=== PATIENT | female | born 1975 | race Caucasian/White ===

== ENCOUNTER 2021-03-28 14:44 | Outpatient (CLI) | payer MEDICARE, MEDICAID, SELFPAY ==
--- NOTE | 2021-03-28 15:15 | MR_ITS ---
WS: [id number] MRI LUMBAR SPINE NONCONTRAST TECHNIQUE: Sagittal T1, T2 and STIR imaging. Axial T1 and T2 imaging. CLINICAL INFORMATION: LBP COMPARISON: None. FINDINGS: Normal lumbar alignment. No acute compression. No high-grade central canal stenosis. Tiny shallow pro trusions L4-L5 and L5-S1. L1-L2: Mild facet arthropathy. Spinal canal and foramen are patent. L2-L3: No significant disc bulging. Mild facet arthropathy. Spinal canal and foramen are patent. L3-L4: Mild annular bulging. Mild facet arthropathy. Spinal canal and foramen are patent. L4-L5: Shallow central and right pericentral protrusion with slight narrowing of the right subarticul ar recess. Slight effacement of ventral thecal sac. Mild facet arthropathy. Foramen are patent. L5-S1: Shallow left pericentral protrusion slightly impinges the traversing left S1 nerve root. Sligh t effacement of the ventral thecal sac. Mild facet arthropathy. Spinal canal and foramen are patent. Right renal cysts partially visualized. Small central protrusions in the mid thoracic spine seen on the nurse liaison imaging at T5-T6, T6-T7, and T7 -T8 with slight contact of the thoracic cord and mild central canal stenosis. Mild chronic appearing anterior wedging at T5-T7. Visualized pelvic bony structures: Normal. Paravertebral soft tissues: Dependent subcutaneous edema in the dorsal lumbar soft tissues. MR/MR lumbar spine wo con* [id number] IMPRESSION: 1. Normal lumbar alignment. No acute compression. No high-grade central canal stenosis. 2. Shallow left pericentral protrusion L5-S1 impinges the traversing left S1 n erve root in the subarticular recess. Recommend correlation left S1 nerve root symptoms. 3. Shallow right pericentral protrusion L4-5 with narrowing of the right subar ticular recess and encroachment traversing right L5 nerve root. 4. Mild facet arthropathy throughout the lumbar spine. 5. Shallow central disc protrusions in the thoracic spine on the nurse liaison imaging at T5-T7 described above with mild central canal stenosis. This can be further evaluated with thoracic spine MRI.
--- NOTE | 2021-03-28 15:15 | XR_ITS ---
WS: [id number] LUMBAR SPINE FLEXION AND EXTENSION TECHNIQUE: 3 views of the lumbar spine: Lateral neutral, flexion, and extension views. CLINICAL INFORMATION: LBP COMPARISON: None. FINDINGS: Normal lumbar alignment on the neutral view. No instability on the flexion and extension views. Mild chronic anterior wedging lower thoracic spine . Mild disc space narrowing L5-S1. XR/XR lumbar spine f/e only [id number] IMPRESSION: No instability on flexion-extension.
== END 2021-03-28 14:45 | disposition home or self-care (01) ==
PROVIDERS: Visit Provider Anesthesiology Pain Medicine
DX: M51.27 Other intervertebral disc displacement, lumbosacral region (principal); M51.26 Other intervertebral disc displacement, lumbar region; M47.816 Spondylosis without myelopathy or radiculopathy, lumbar region; M51.24 Other intervertebral disc displacement, thoracic region
CPT/HCPCS: 72120; 72148

== ENCOUNTER 2021-04-14 11:03 | Outpatient (CLI) | payer MEDICARE, MEDICAID, SELFPAY ==
--- NOTE | 2021-04-14 11:10 | CT_ITS ---
WS: [id number] CT scan of the abdomen and pelvis with oral and IV contrast. Additional two-dimensional coronal and s agittal reconstruction was performed. 04/14/2021 Clinical Data: ABDOMINAL PAIN AND NAUSEA Comparison: CT abdomen and pelvis, 11/15/2012 DLP: 1251.[address] scans at [facility] use at least one of these dose optimization techniques: automated e xposure control; mA and/or kV adjustment per patient size (includes targeted exams where dose is matc hed to clinical indication); or iterative reconstruction. Findings: The lower lungs show no nodules, masses or effusions. There is enlarged with surface irregularity which can be seen with cirrhosis. No liver nodules or mas ses are seen. The gallbladder is absent with clips in the gallbladder fossa. Spleen is enlarged but t here are no splenic cysts or masses. There is a large amount of ascites throughout the abdomen and pe lvis. The pancreas is normal. The adrenal glands are not remarkable. The kidneys show equal bilateral contrast excretion with no cyst or masses. No hydronephrosis or christopher l calculi are seen. The abdominal aorta is normal in size. No appendicitis or diverticulitis is seen. Oral contrast is in the stomach and small bowel and there is no bowel dilatation. No abscess, adenopathy, mass, obstruction or free air is seen. The bladder is unremarkable. The uterus is normal. No inguinal hernia is seen. The bones of the lower thorax, lumbar spine, pelvis, and hips show only osteoarthritis of the lower t horacic vertebral bodies. CT/CT abdomen pelvis w con* [id number] Impression: 1. Hepatosplenomegaly with probable cirrhosis of the liver. 2. Large amount of pelvic and abdominal ascites. 3. Cholecystectomy.
[2021-04-14] MEDS: iohexol 300 mg/mL 50 mL Btl PO (11:12)
[2021-04-14] MEDS: iohexol 350 mg/mL 100 mL Btl IV (13:03)
== END 2021-04-14 11:04 | disposition home or self-care (01) ==
PROVIDERS: Visit Provider Family Medicine
DX: R10.9 Unspecified abdominal pain (principal); R11.0 Nausea; R16.2 Hepatomegaly with splenomegaly, not elsewhere classified; R18.8 Other ascites; Z90.49 Acquired absence of other specified parts of digestive tract
CPT/HCPCS: 74177; Q9967

== ENCOUNTER 2021-11-20 06:11 | Outpatient (CLI) | payer MEDICARE, MEDICAID, SELFPAY ==
--- NOTE | 2021-11-20 | US_ITS ---
WS: [id number] RIGHT UPPER QUADRANT ULTRASOUND HISTORY: ABD PAIN COMPARISON: None available. Liver: 14.3 cm in length. Visually the liver appears large although does not measure enlarged. Surfac e of the liver is irregular from cirrhosis. Coarse echotexture. No mass or bile duct dilatation. Portal Vein: Normal hepatopetal flow with monophasic waveform. Gallbladder: Status post cholecystectomy. CBD: 0.4 cm Pancreas: Not visualized due to body habitus and bowel gas. Right kidney: 11.9 cm in length. Normal size and echogenicity. No hydronephrosis or mass. Aorta and IVC: Unremarkable abdominal aorta and IVC. There is a small to moderate amount of ascites throughout the abdomen in all 4 quadrants. US/US abdomen limited [id number] IMPRESSION: 1. Small to moderate amount of ascites throughout all 4 quadrants. 2. Cirrhosis with no mass identified. 3. Normal portal vein waveform. 4. Prior cholecystectomy.
== END 2021-11-20 06:12 | disposition home or self-care (01) ==
LOC: RAD 06:12
PROVIDERS: Visit Provider Nurse Practitioner
DX: R10.9 Unspecified abdominal pain (principal); K59.00 Constipation, unspecified; K74.60 Unspecified cirrhosis of liver; R18.0 Malignant ascites
CPT/HCPCS: 76705

== ENCOUNTER 2022-02-04 13:42 | Outpatient (CLI) | payer MEDICARE, MEDICAID, SELFPAY ==
--- NOTE | 2022-02-04 13:46 | CT_ITS ---
WS: [id number] CT ABDOMEN AND PELVIS WITH CONTRAST HISTORY: Abdominal pain and bloating. RIGHT upper quadrant pain into back. TECHNIQUE: Imaging performed of the abdomen and pelvis with IV contrast. Single phase imaging of the abdomen. Coronal and sagittal reformats are submitted. All CT scans at [facility] use at [address] one of these dose optimization techniques: automated exposure control; mA and/or kV adjustment per patient size (includes targeted exams where dose is matched to clinical indication); or iterative re construction. IV CONTRAST: Omnipaque 350; 95 mL IV. Oral contrast: Yes. DLP: 1425.03 mGy.cm COMPARISON: 04/14/2021 and 11/15/2012 Lower thorax: Very minimal groundglass hazy opacifications at the lung bases normal size heart. The R IGHT atrium is being compressed by slightly elevated RIGHT diaphragm. The RIGHT diaphragmatic elevati on secondary to a large amount of ascites within the abdomen extending superiorly causing some mild m ass effect upon the RIGHT atrium. No hiatal hernia. Liver/biliary system: Cirrhotic liver. Margins are nodular and irregular. No mass or bile duct dilata tion. Portal vein is normal. Gallbladder: Status post cholecystectomy. Pancreas: Normal size pancreas and pancreatic duct. No adjacent inflammation. Spleen: Moderately enlarged spleen measuring 16.3 cm in length. 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 Adrenal glands: Normal. Right kidney: Too small to characterize hypodense nodule superior pole. No obstruction. Left kidney: Normal. Aorta: Normal size aorta. Hepatic artery and splenic artery arise separately from the aorta. Normal S MA. Lymphadenopathy: There are small lymph nodes near the celiac axis of the largest measuring 12 mm. Free fluid: Large amount of intraperitoneal free fluid. The ascites has increased since the prior isabel dy. GI tract: Normal stomach and small bowel. Mild diffuse constipation. Abdominal wall: Umbilical hernia contains fluid and fat. There is marked diffuse soft tissue anasarca throughout the abdominal wall. Pelvis: Large amount of free fluid. The uterus is present and normal. Normal size ovaries. Bones: Increase in lumbar lordosis. CT/CT abdomen pelvis w con* [id number] IMPRESSION: 1. Large amount of intraperitoneal ascites. Amount is increased since 1. 2. Increased ascites in the peritoneal cavity is causing elevation of the RIGH T hemidiaphragm and mild contact on the RIGHT heart causing deformity and proba ble poor expansion of the RIGHT atrium. Consider large volume paracentesis. 3. Cirrhosis and portal venous hypertension. 4. Prior cholecystectomy. 5. Soft tissue anasarca.
[2022-02-04] MEDS: barium sulfate 450 mL Oral Susp PO (16:08)
[2022-02-04] MEDS: iohexol 350 mg/mL 100 mL Btl IV (16:08)
== END 2022-02-04 13:43 | disposition home or self-care (01) ==
PROVIDERS: PCP Family Medicine; Visit Provider Nurse Practitioner
DX: R10.9 Unspecified abdominal pain (principal); R18.8 Other ascites; K74.60 Unspecified cirrhosis of liver; K76.6 Portal hypertension; Z90.49 Acquired absence of other specified parts of digestive tract
CPT/HCPCS: 74177

== ENCOUNTER 2022-09-18 07:32 | Outpatient (CLI) | payer MEDICARE, MEDICAID, SELFPAY ==
--- NOTE | 2022-09-18 08:21 | US_ITS ---
WS: [id number] RENAL ULTRASOUND HISTORY: CYST OF KIDNEY/RENAL LESION NOTED ON U/S SCAN COMPARISON: 02/04/2022 CT. TECHNIQUE: 2-D and color Doppler imaging of the kidney submitted. Right kidney: 11.6 cm x 5.1 cm x 4.6 cm. Normal size kidney. No solid mass or hydronephrosis. Cortical cyst measures 8 mm mid kidney. Similar in size and location to the nodule seen on recent CT. Left kidney: 12.2 cm x 5.3 cm x 4.9 cm. Normal echogenicity with no hydronephrosis or mass. Aorta: Not visualized. Urinary Bladder: Nondistended. Small amount of ascites. US/US renal BI* [id number] IMPRESSION: 1. 8 mm RIGHT renal cyst. Corresponds to the findings on a recent CT. 2. No hydronephrosis or solid mass. 3. Ascites.
== END 2022-09-18 07:33 | disposition home or self-care (01) ==
PROVIDERS: PCP Family Medicine; Visit Provider Family Medicine
DX: N28.1 Cyst of kidney, acquired (principal); R18.8 Other ascites
CPT/HCPCS: 76770

== ENCOUNTER 2022-12-08 09:56 | Observation (INO) | payer MEDICARE, MEDICAID, SELFPAY ==
[2022-12-08] VITALS (8 sets, daily range): BP systolic 143–163; BP diastolic 69–99; PULSE 79–106; RESP 16–18; TEMP 36.7; O2SAT 97–100; BMI 42.7
--- NOTE | 2022-12-08 10:06 | XR_ITS ---
WS: [id number] PORTABLE CHEST HISTORY: weakness COMPARISON: 08/29/2018 Lung volumes are decreased. No mass or pneumonia. No pleural effusion or pneumothorax. Cardiac size: Normal. Mediastinum/Aorta: Normal mediastinum. No osseous abnormality seen. XR/XR chest 1V portable [id number] IMPRESSION: Unremarkable portable chest.
--- NOTE | 2022-12-08 10:11 | ED_ITS ---
Documented by User: KATERINA Gonzáles 12/09/22 07:03 HPI - General Adult General: Chief complaint: Weakness Stated complaint: POST TREMORS Time Seen by Provider: 12/08/22 09:57 Source: patient and EMS Mode of arrival: EMS Limitations: no limitations History of Present Illness: Patient is a 47-year-old female presents to ED today with complaint of generalized weakness, mental slowing, and tremor/jerky movements. Patient tells me she was recently at [facility] where she had a TIPS procedure performed (12/01). States procedure was performed secondary to severe CEDILLO to prolong the life of my liver . Patient states a few days ago she went to [facility] with identical symptoms and was diagnosed with hepatic encephalopathy. She reportedly was supposed to be transferred back to [facility] however they did not have a bed so was boarded in their ED for 1 to 2 days. Mental status improved with repeat doses of lactulose and she was subsequently discharged on 12/06. Given prescriptions for lactulose and rifaximin. She states her insurance does not cover this medication (rifaximin) and it was too expensive to fill. Has been taking her lactulose. Patient on exam is alert and oriented however there does seem to be some slight cognitive slowing. PMH is significant for DVT several years ago still on Eliquis anticoagulation, asthma, fibromyalgia, edema without diagnosis of CHF, chronic back pain, diabetes, opioid-induced constipation, GERD, Graves' disease. Onset (ago): day(s) Relieving factors: none Exacerbating factors: none Associated symptoms: Reports confusion and weakness; Deny chest pain, dyspnea, headache(s), malaise, nausea, rash or vomiting Treatments prior to arrival: none Review of Systems Const: Reports: fatigue; Denies: fever(s), chills, body aches or malaise Card: Denies: chest pain Resp: Denies: dyspnea GI: Denies: abdominal pain, nausea, vomiting or diarrhea : Denies: flank pain, difficulty voiding, dysuria or urinary frequency Musc: Denies: neck pain, back pain, extremity pain or joint pain Skin/Breast: Denies: rash Neuro: Reports: weakness in extremities, difficulty walking, frequent falls, confusion and difficulty communicating thoughts; Denies: headache(s), numbness in extremities, sensory changes, dizziness, vertigo, behavioral changes, Slurred speech present, seizure-like activity, involuntary movements or restless legs PFSH ED PFSH: Medical History Chronic anticoagulation Diabetes DVT (deep venous thrombosis) Surgical History S/P TIPS (transjugular intrahepatic portosystemic shunt) Family History Denies family history of CAD (coronary artery disease) Social History Smoking and tobacco status: never smoked Alcohol intake: never Substance/Drug Use: never Physical Exam Const: COMMON NORMALS: patient oriented x3 and alert GENERAL APPEARANCE: cooperative, ill appearing (chronically ill appearing), appears older than stated age and other (deconditioned ) NUTRITIONAL APPEARANCE: obese morbidly obese ORIENTATION/CONSCIOUSNESS: Yes awake, Yes oriented to person, Yes oriented to place and Yes oriented to time HENMT: COMMON NORMALS: normocephalic and atraumatic HEAD & SCALP: normal to inspection, normocephalic and atraumatic Eye: COMMON NORMALS: no scleral icterus Resp: COMMON NORMALS: normal respiratory effort and clear to auscultation bilaterally AUSCULTATION: clear to auscultation bilaterally Cardio: COMMON NORMALS: regular rate and regular rhythm RATE: regular rate RHYTHM: regular rhythm GI: COMMON NORMALS: Normal to inspection, nondistended, normoactive bowel sounds present, Soft to palpation and non-tender PALPATION: Yes Soft to palpation : COMMON NORMALS: Yes no CVA tenderness BLADDER/KIDNEY EXAM: Yes no CVA tenderness Back/Pelvis: COMMON NORMALS: no CVA tenderness Extremity: COMMON NORMALS: normal to inspection, capillary refill normal, no clubbing, cyanosis or edema, no calf tenderness and no pedal edema GENERAL: Yes normal exam except as noted Neuro: NICCI COMA SCALE: document GCS findings Nicci coma scale eye opening: Spontaneous Nicci coma scale verbal response: Orientated Encampment coma scale motor response: Obey commands Encampment coma scale total score: 15 COMMON NORMALS: patient oriented x3, CN's II-XII intact bilaterally, moves all extremities, no focal motor deficits and no sensory deficits noted SENSORIUM/ORIENTATION: Yes alert, Yes oriented to person, Yes oriented to place and Yes oriented to time GAIT: Yes Unable to assess gait Skin: COMMON NORMALS: no rashes or lesions noted GENERAL SKIN EXAM: no rashes or lesions noted Course Reevaluation(s): Reevaluation #1: Patient's mentation seems improved currently as opposed to when she first arrived. She continues to complain of diffuse weakness. Consultations: Consultation #1: Dr. Denson/GI-agrees with decision to transfer given now this is her second ED hospitalization for hepatic encephalopathy following TIPS procedure a week ago. He stated admitting physician will be Dr. Zamudio. Consultation #2: Dr. Stafford-will consult on patient while in the ED as she is anticipated to be here 1-2 days prior to transfer to [facility] Vital Signs: Vital signs: Vital Signs Temperature 98.0 F 12/09/22 05:35 Pulse Rate 97 12/09/22 05:35 Respiratory Rate 19 H 12/09/22 05:35 Blood Pressure 163/92 12/09/22 06:00 Pulse Oximetry 96 12/09/22 05:35 Oxygen Delivery Me thod Room Air 12/09/22 00:06 MDM - General Adult Medical Decision Making Patient is a 47-year-old female here for complaints of generalized weakness, abnormal tremulous/jerky movements, and mental slowing. She was admitted to [facility] a few days ago for same symptoms. She is status post TIPS procedure performed on 12/01. She has been taking her lactulose as prescribed at home. Her ammonia today is 140. I spoke to GI at [facility] who recommended transfer back to their facility. Transfer line states they have no beds available but will call us when they do. Patient was given repeat dose of lactulose here. I did obtain liver ultrasound with Doppler which showed limited visualization of the TIPS and states patency was not well evaluated. There did appear to be at least some flow present. He was also given a dose of rifaximin. I spoke to Dr. De La Torre in regards to patient. We will have hospitalist attempt to consult on her here in the ED given her extensive comorbidities until she can be transferred back to [facility]. Lab Data 12/09/22 05:00 12/09/22 05:00 Radiology Impressions Chest X-Ray 12/08/22 10:06 IMPRESSION: Unremarkable portable chest. Liver Ultrasound 12/08/22 11:41 IMPRESSION: 1. Very limited visualization of the TIPS. Patency is not well evaluated. There does appear to be at least some flow present. 2. Normal flow in the portal vein. 3. Small amount of ascites adjacent to the liver. Ascites has decreased in amount since 09/18/2022. Laboratory Results WBC 5.5 10^3/uL (4.0-10.0) 12/08/22 11:15 RBC 4.52 10^6/uL (4.1-5.3) 12/08/22 11:15 Hgb 12.7 g/dL (11.5-15.3) 12/08/22 11:15 Hct 38.3 % (37.0-47.0) 12/08/22 11:15 MCV 84.7 fl (81-99) 12/08/22 11:15 MCH 28.1 pg (28.0-34.0) 12/08/22 11:15 MCHC 33.2 g/dL (30.0-36.0) 12/08/22 11:15 RDW 19.5 % (12.1-15.1) H 12/08/22 11:15 Plt Count 107 10^3/cmm (130-400) L 12/08/22 11:15 MPV 8.4 fL (7.4-10.4) 12/08/22 11:15 Neut % (Auto) 66.1 % 12/08/22 11:15 Lymph % (Auto) 22.5 % 12/08/22 11:15 Gage % (Auto) 9.2 % 12/08/22 11:15 Eos % (Auto) 1.6 % 12/08/22 11:15 Baso % (Auto) 0.4 % 12/08/22 11:15 Neut # (Auto) 3.65 10^3/uL (1.8-7.7) 12/08/22 11:15 Lymph # (Auto) 1.2 10^3/uL (0.8-4.8) 12/08/22 11:15 Gage # (Auto) 0.5 10^3/uL (0.2-0.9) 12/08/22 11:15 Eos # (Auto) 0.1 10^3/uL (0.0-0.8) 12/08/22 11:15 Baso # (Auto) 0.0 10^3/uL (0.0-0.1) 12/08/22 11:15 Nucleated RBC % (auto) 0 % 12/08/22 11:15 Nucleated RBCs # 0.0 /100WBC 12/08/22 11:15 PT 15.80 SECONDS (12.1-14.9) H 12/08/22 11:15 INR 1.22 (0.8-1.2) H 12/08/22 11:15 APTT 30.9 SECONDS (23.9-36.7) 12/08/22 11:15 Sodium 140 mmol/L (136-145) 12/08/22 11:15 Potassium 3.9 mmol/L (3.5-5.1) 12/08/22 11:15 Chloride 105 mmol/L (98-107) 12/08/22 11:15 Carbon Dioxide 23 mmol/L (22-29) 12/08/22 11:15 Anion Gap 15.9 (5-19) 12/08/22 11:15 BUN 9 mg/dL (6-20) 12/08/22 11:15 Creatinine 0.4 mg/dL (0.5-0.9) L 12/08/22 11:15 GFR Calculation 170.4 mL/min (90-130) H 12/08/22 11:15 Glucose 124 mg/dL (65-115) H 12/08/22 11:15 POC Glucose 109 mg/dL (70-110) 12/08/22 19:32 Calculated Osmolality 290 mOsm/kg (285-295) 12/08/22 11:15 Calcium 9.1 mg/dL (8.5-10.5) 12/08/22 11:15 Total Bilirubin 1.9 mg/dL (0.15-1.2) H 12/08/22 11:15 AST 48 U/L (0-32) H 12/08/22 11:15 ALT 65 U/L (0-33) H 12/08/22 11:15 Alkaline Phosphatase 88 U/L (35-105) 12/08/22 11:15 Ammonia 140 umol/L (11-51) H 12/08/22 11:15 Total Protein 7.2 g/dL (6.6-8.7) 12/08/22 11:15 Albumin 3.8 g/dL (3.5-5.2) 12/08/22 11:15 Globulin 3.4 g/dL (1.3-4.6) 12/08/22 11:15 Urine Color Yellow (Yellow) 12/08/22 11:06 Urine Appearance Clear (CLEAR) 12/08/22 11:06 Urine pH 7 (5-7) 12/08/22 11:06 Ur Specific [place] 1.010 (1.005-1.030) 12/08/22 11:06 Urine Protein Neg (Negative) 12/08/22 11:06 Urine Glucose (UA) Norm (Normal) 12/08/22 11:06 Urine Ketones Negative (Negative) 12/08/22 11:06 Urine Blood Neg (Negative) 12/08/22 11:06 Urine Nitrate Negative (Negative) 12/08/22 11:06 Urine Bilirubin 1+ (Negative) H 12/08/22 11:06 Urine Urobilinogen 4+ mg/dL (Negative) H 12/08/22 11:06 Ur Leukocyte Esterase Negative (Negative) 12/08/22 11:06 Discharge Plan Discharge Patient Disposition: Admitted As Inpatient Admit Provider: Camila Salguero Clinical Impression: Acute hepatic encephalopathy, Liver cirrhosis secondary to CEDILLO, S/P TIPS (transjugular intrahepatic portosystemic shunt), Hyperammonemia, Hyperbilirubinemia Condition: Stable Coding Level of Care Code ED Outsole Caser for Chg Fwd Documented by User: Stoney De La Torre DO 12/08/22 21:26 HPI - General Adult General: Chief complaint: Weakness Stated complaint: POST TREMORS Time Seen by Provider: 12/08/22 09:57 PFSH ED PFSH: Medical History Chronic anticoagulation Diabetes DVT (deep venous thrombosis) Surgical History S/P TIPS (transjugular intrahepatic portosystemic shunt) Family History Denies family history of CAD (coronary artery disease) Social History Smoking and tobacco status: never smoked Alcohol intake: never Substance/Drug Use: never Physical Exam Neuro: NICCI COMA SCALE: document GCS findings Nicci coma scale total score: 15 Course Reevaluation(s): Reevaluation #2: There was appropriate concern raised by staff regarding the patient's potential prolonged stay in the emergency department and our current patient load. I briefly interviewed the patient and she seemed to be alert and stable and mentating reasonably well. I discussed with the overnight hospitalist Dr. Salguero who graciously agreed to place the patient in an inpatient bed pending her transfer to [facility] for further care. Time: 21:26 Vital Signs: Vital signs: Vital Signs Temperature 98.0 F 12/09/22 05:35 Pulse Rate 97 12/09/22 05:35 Respiratory Rate 19 H 12/09/22 05:35 Blood Pressure 163/92 12/09/22 06:00 Pulse Oximetry 96 12/09/22 05:35 Oxygen Delivery Me thod Room Air 12/09/22 00:06 [facility] - General Adult Lab Data 12/09/22 05:00 12/09/22 05:00 Radiology Impressions Chest X-Ray 12/08/22 10:06 IMPRESSION: Unremarkable portable chest. Liver Ultrasound 12/08/22 11:41 IMPRESSION: 1. Very limited visualization of the TIPS. Patency is not well evaluated. There does appear to be at least some flow present. 2. Normal flow in the portal vein. 3. Small amount of ascites adjacent to the liver. Ascites has decreased in amount since 09/18/2022. Laboratory Results WBC 5.5 10^3/uL (4.0-10.0) 12/08/22 11:15 RBC 4.52 10^6/uL (4.1-5.3) 12/08/22 11:15 Hgb 12.7 g/dL (11.5-15.3) 12/08/22 11:15 Hct 38.3 % (37.0-47.0) 12/08/22 11:15 MCV 84.7 fl (81-99) 12/08/22 11:15 MCH 28.1 pg (28.0-34.0) 12/08/22 11:15 MCHC 33.2 g/dL (30.0-36.0) 12/08/22 11:15 RDW 19.5 % (12.1-15.1) H 12/08/22 11:15 Plt Count 107 10^3/cmm (130-400) L 12/08/22 11:15 MPV 8.4 fL (7.4-10.4) 12/08/22 11:15 Neut % (Auto) 66.1 % 12/08/22 11:15 Lymph % (Auto) 22.5 % 12/08/22 11:15 Gage % (Auto) 9.2 % 12/08/22 11:15 Eos % (Auto) 1.6 % 12/08/22 11:15 Baso % (Auto) 0.4 % 12/08/22 11:15 Neut # (Auto) 3.65 10^3/uL (1.8-7.7) 12/08/22 11:15 Lymph # (Auto) 1.2 10^3/uL (0.8-4.8) 12/08/22 11:15 Gage # (Auto) 0.5 10^3/uL (0.2-0.9) 12/08/22 11:15 Eos # (Auto) 0.1 10^3/uL (0.0-0.8) 12/08/22 11:15 Baso # (Auto) 0.0 10^3/uL (0.0-0.1) 12/08/22 11:15 Nucleated RBC % (auto) 0 % 12/08/22 11:15 Nucleated RBCs # 0.0 /100WBC 12/08/22 11:15 PT 15.80 SECONDS (12.1-14.9) H 12/08/22 11:15 INR 1.22 (0.8-1.2) H 12/08/22 11:15 APTT 30.9 SECONDS (23.9-36.7) 12/08/22 11:15 Sodium 140 mmol/L (136-145) 12/08/22 11:15 Potassium 3.9 mmol/L (3.5-5.1) 12/08/22 11:15 Chloride 105 mmol/L (98-107) 12/08/22 11:15 Carbon Dioxide 23 mmol/L (22-29) 12/08/22 11:15 Anion Gap 15.9 (5-19) 12/08/22 11:15 BUN 9 mg/dL (6-20) 12/08/22 11:15 Creatinine 0.4 mg/dL (0.5-0.9) L 12/08/22 11:15 GFR Calculation 170.4 mL/min (90-130) H 12/08/22 11:15 Glucose 124 mg/dL (65-115) H 12/08/22 11:15 POC Glucose 109 mg/dL (70-110) 12/08/22 19:32 Calculated Osmolality 290 mOsm/kg (285-295) 12/08/22 11:15 Calcium 9.1 mg/dL (8.5-10.5) 12/08/22 11:15 Total Bilirubin 1.9 mg/dL (0.15-1.2) H 12/08/22 11:15 AST 48 U/L (0-32) H 12/08/22 11:15 ALT 65 U/L (0-33) H 12/08/22 11:15 Alkaline Phosphatase 88 U/L (35-105) 12/08/22 11:15 Ammonia 140 umol/L (11-51) H 12/08/22 11:15 Total Protein 7.2 g/dL (6.6-8.7) 12/08/22 11:15 Albumin 3.8 g/dL (3.5-5.2) 12/08/22 11:15 Globulin 3.4 g/dL (1.3-4.6) 12/08/22 11:15 Urine Color Yellow (Yellow) 12/08/22 11:06 Urine Appearance Clear (CLEAR) 12/08/22 11:06 Urine pH 7 (5-7) 12/08/22 11:06 Ur Specific [place] 1.010 (1.005-1.030) 12/08/22 11:06 Urine Protein Neg (Negative) 12/08/22 11:06 Urine Glucose (UA) Norm (Normal) 12/08/22 11:06 Urine Ketones Negative (Negative) 12/08/22 11:06 Urine Blood Neg (Negative) 12/08/22 11:06 Urine Nitrate Negative (Negative) 12/08/22 11:06 Urine Bilirubin 1+ (Negative) H 12/08/22 11:06 Urine Urobilinogen 4+ mg/dL (Negative) H 12/08/22 11:06 Ur Leukocyte Esterase Negative (Negative) 12/08/22 11:06 Discharge Plan Discharge Patient Disposition: Admitted As Inpatient Admit Provider: Camila Salguero Clinical Impression: Acute hepatic encephalopathy, Liver cirrhosis secondary to CEDILLO, S/P TIPS (transjugular intrahepatic portosystemic shunt), Hyperammonemia, Hyperbilirubinemia Condition: Stable Coding Level of Care Code ED Outsole Caser for Madisyn Glover
[2022-12-08 11:10] LABS: Add Urine Microscopic? NO; Charge for UA Resulting for Rev
--- NOTE | 2022-12-08 11:15 | PC.PHAR ---
pt states she takes care of her own medications-pt states she doesnt take lisinopril 5mg daily filled 08/27/22 90d/s-pt states the dr increased her spironolactone to 200mg qam ext shows last filled 150mg daily on 09/02/22 90d/s-pt states the dr also increased her lasix to 80mg daily ext med history shows last filled 60mg daily on 07/18/22 90d/s-pt states she takes tizanidine 4mg q4h ext shows filled 4-8mg po q8h prn filled 11/13/22 30d/s-notes are made in the pharmacy comments
[2022-12-08 11:17] LABS: Bilirubin Urine 1+ (Negative); Blood Urine Neg (Negative); Glucose Urine UA Norm (Normal); Ketones Urine Negative (Negative); Nitrate Urine Negative (Negative); Protein Urine Neg (Negative); Urine Appearance Clear (CLEAR); Urine Color Yellow (Yellow); Urobilinogen Urine 4+ mg/dL (Negative); pH Urine 7 (5-7)
[2022-12-08 11:18] LABS: Leukocyte Esterase Urine Negative (Negative)
[2022-12-08 11:24] LABS: Basophils % 0.4 %; Eosinophils # 0.1 10^3/uL (0.0-0.8); Eosinophils % 1.6 %; Hematocrit 38.3 % (37.0-47.0); Hemoglobin 12.7 g/dL (11.5-15.3); Lymphocytes # 1.2 10^3/uL (0.8-4.8); Lymphocytes % 22.5 %; Mean Corpuscular HGB Conc 33.2 g/dL (30.0-36.0); Mean Corpuscular Hemoglobin 28.1 pg (28.0-34.0); Mean Corpuscular Volume 84.7 fl (81-99); Mean Platelet Volume 8.4 fL (7.4-10.4); Monocytes # 0.5 10^3/uL (0.2-0.9); Monocytes % 9.2 %; Neutrophils # 3.65 10^3/uL (1.8-7.7); Neutrophils % 66.1 %; Nucleated Red Blood Cells % 0 %; Platelet Count 107 10^3/cmm (130-400); Red Blood Count 4.52 10^6/uL (4.1-5.3); Red Cell Distribution Width 19.5 % (12.1-15.1); White Blood Count 5.5 10^3/uL (4.0-10.0)
[2022-12-08 11:34] LABS: INR 1.22 (0.8-1.2)
[2022-12-08 11:35] LABS: Partial Thromboplastin Time 30.9 SECONDS (23.9-36.7)
--- NOTE | 2022-12-08 11:41 | US_ITS ---
WS: [id number] RIGHT UPPER QUADRANT ULTRASOUND HISTORY: TIPS procedure COMPARISON: 11/20/2021 Technically very difficult limited evaluation due to patient's body habitus. Liver: 15.9 cm in length. Liver is poorly visualized. Coarse echotexture throughout the liver with a small amount of ascites. The ascites has slightly decreased in amount since 09/18/2022. Main portal ve in is patent with forward flow. The actual tips is very poorly visualized there is a small amount of increased vascularity present through the stent. Portal Vein: Normal hepatopetal flow with monophasic waveform. Gallbladder: Prior cholecystectomy. CBD: 0.6 cm Pancreas: Not visualized. Right kidney: 12.0 cm in length. Normal size and echogenicity. No hydronephrosis or mass. Aorta and IVC: Unremarkable abdominal aorta and IVC. Small amount of ascites. US/US liver [id number] IMPRESSION: 1. Very limited visualization of the TIPS. Patency is not well evaluated. Ther e does appear to be at least some flow present. 2. Normal flow in the portal vein. 3. Small amount of ascites adjacent to the liver. Ascites has decreased in [place] unt since 09/18/2022.
[2022-12-08 11:43] LABS: Alanine Aminotransferase 65 U/L (0-33); Albumin Level 3.8 g/dL (3.5-5.2); Alkaline Phosphatase 88 U/L (35-105); Ammonia 140 umol/L (11-51); Anion Gap 15.9 (5-19); Aspartate Amino Transferase 48 U/L (0-32); Blood Urea Nitrogen 9 mg/dL (6-20); Calcium 9.1 mg/dL (8.5-10.5); Carbon Dioxide 23 mmol/L (22-29); Chloride 105 mmol/L (98-107); Globulin 3.4 g/dL (1.3-4.6); Glomerular Filtration Rate 170.4 mL/min (90-130); Glucose 124 mg/dL (65-115); Osmolality Calculated 290 mOsm/kg (285-295); Potassium 3.9 mmol/L (3.5-5.1); Sodium 140 mmol/L (136-145); Total Bilirubin 1.9 mg/dL (0.15-1.2); Total Protein 7.2 g/dL (6.6-8.7)
[2022-12-08] MEDS: lactulose oral liq 20 gm/30 mL UDC 30 GM PO ×2 (12:50→13:29)
[2022-12-08] MEDS: promethazine 25 mg Tablet PO (14:16)
[2022-12-08] MEDS: HYDROcodone-acetaminophen 5-325 mg Tablet 1 TAB PO (14:16)
--- NOTE | 2022-12-08 16:56 | P.CONIM_ITS ---
Providers/Reason For Consult Consulting Physician/Specialty*: Comorbid condition management hospitalist Reason for Consult*: Hospitalist comanagement comorbid conditions Primary Care Provider: Berta Whalen MD History of Present Illness History of Present Illness Shaista Boudreaux is a 47 year old female who has history of Ordonez, status post [facility] presented with altered mental status and asterixis recently in the ER when she was discharged home on lactulose and diuretics, presented back to the hospital with chief complaint of worsening of tremors, confusion. [facility], but they do not have any beds at this point, patient will stay in the ER, hospital service was consulted for management of comorbid conditions. Patient does carry history of GERD, diabetes, DVT on Eliquis chronic anticoagulation, fibromyalgia. Review of Systems Const: Denies: fever(s) Eyes: Denies: change in vision ENMT: Denies: throat pain Card: Denies: chest pain Resp: Reports: dyspnea GI: Reports: nausea and bloating : Denies: flank pain Musc: Denies: neck pain Skin/Breast: Denies: rash Neuro: Reports: headache(s) Psych: Reports: anxiety Medications/Allergies Home Medications Medication Instructions Recorded Confirmed Last Taken Type albuterol sulfate 90 mcg/actuation 2 puff inhalation QID PRN 12/08/22 12/08/22 Unknown History aerosol inhaler Shortness Of Breath apixaban 5 mg tablet (Eliquis) 5 mg PO BID 12/08/22 12/08/22 12/07/22 History cetirizine 10 mg tablet 10 mg PO BEDTIME 12/08/22 12/08/22 12/07/22 History docusate sodium 100 mg capsule 300 mg PO BEDTIME 12/08/22 12/08/22 12/07/22 History (Colace) duloxetine 60 mg capsule,delayed 60 mg PO QAM 12/08/22 12/08/22 12/07/22 History release ferrous sulfate-vitamin C 39 mg-75 1 tab PO BEDTIME 12/08/22 12/08/22 12/07/22 History mg tablet furosemide 40 mg tablet 80 mg PO QAM 12/08/22 12/08/22 12/07/22 History see pharmacy comment gabapentin 300 mg capsule 600 mg PO BID 12/08/22 12/08/22 12/07/22 History glimepiride 4 mg tablet 4 mg PO BID 12/08/22 12/08/22 12/07/22 History ibuprofen 800 mg tablet 800 mg PO DAILY PRN Pain 12/08/22 12/08/22 Unknown History lactulose 10 gram/15 mL oral 30 ml PO TID 12/08/22 12/08/22 12/07/22 History solution (Constulose) levothyroxine 175 mcg tablet 175 mcg PO QAM 12/08/22 12/08/22 12/07/22 History linaclotide 145 mcg capsule 145 mcg PO QAM 12/08/22 12/08/22 12/07/22 History (Linzess) metformin 500 mg tablet,extended 1,000 mg PO BID 12/08/22 12/08/22 12/07/22 History release 24 hr montelukast 10 mg tablet 10 mg PO BEDTIME 12/08/22 12/08/22 12/07/22 History ondansetron 4 mg disintegrating 4 mg PO TID PRN Nausea And Vomiting 12/08/22 12/08/22 Unknown History tablet oxycodone 10 mg tablet 10 - 20 mg PO .EVERY 4-6 HOURS PRN 12/08/22 12/08/22 04:35 History Pain pantoprazole 40 mg tablet,delayed 40 mg PO BID 12/08/22 12/08/22 12/07/22 History release promethazine 25 mg tablet 12.5 - 25 mg PO Q4H PRN Nausea And 12/08/22 12/08/22 Unknown History Vomiting spironolactone 50 mg tablet 200 mg PO QAM 12/08/22 12/08/22 12/07/22 History see pharmacy comment tizanidine 4 mg tablet 4 mg PO Q4H 12/08/22 12/08/22 Unknown History Allergies Allergy/AdvReac Type Severity Reaction Status Date / Time cyclobenzaprine Allergy Unknown Verified 12/08/22 10:59 [From Flexeril] dicyclomine Allergy Unknown Verified 12/08/22 10:59 latex Allergy ALGY-Hives Verified 12/08/22 10:08 Latex, Natural Rubber Allergy ALGY-Hives Verified 12/08/22 10:08 medroxyprogesterone Allergy Unknown Verified 12/08/22 10:59 pseudoephedrine Allergy Unknown Verified 12/08/22 10:59 sulfamethoxazole Allergy Unknown Verified 12/08/22 10:59 [From Bactrim] trimethoprim [From Bactrim] Allergy Unknown Verified 12/08/22 10:59 PFSH Acute PFSH: Medical History Chronic anticoagulation Diabetes DVT (deep venous thrombosis) Surgical History S/P TIPS (transjugular intrahepatic portosystemic shunt) Family History Denies family history of CAD (coronary artery disease) Social History Smoking and tobacco status: never smoked Alcohol intake: never Substance/Drug Use: never Vitals/I&O/Wt Last Vital Signs Temp 98.0 F 12/08/22 09:57 Pulse 102 H 12/08/22 16:41 Resp 16 12/08/22 09:57 BP 162/93 12/08/22 16:41 Pulse Ox 97 12/08/22 16:41 O2 Del Method Room Air 12/08/22 09:57 Weight last 48 hrs Weight 120.656 kg Data 12/08/22 11:15 12/08/22 11:15 Micro: Microbiology 12/08/22 13:45 Blood Culture - Preliminary Blood SPECIMEN COLLECTED 12/08/22 13:45 Blood Culture - Preliminary Blood SPECIMEN COLLECTED A&P Assessment and plan (1) Acute hepatic encephalopathy: (2) 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: (3) S/P TIPS (transjugular intrahepatic portosystemic shunt): (4) Hyperammonemia: (5) Hyperbilirubinemia: Plan Hepatic encephalopathy decompensated liver cirrhosis Status post TIPS procedur Confusion is a very common effect after TIPS procedure I will keep patient on ceftriaxone 2 g daily as prophylactic regimen for SBP Continue spironolactone to Lasix 2:1 ratio Cardiac low-sodium fluid stricter diet Full code Less than 2 g salt diet DVT prophylaxis covered with Eliquis Patient [place] continue Eliquis for now Patient history of fibromyalgia and GERD: Continue antidepressants and Protonix She has been accepted at [facility] awaiting bed placement Consult Attestations Medical Necessity Statement: Comorbid conditions management Diagnoses Acute hepatic encephalopathy K76.82 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 K75.81; K74.60 S/P TIPS (transjugular intrahepatic portosystemic shunt) Z95.828 Hyperammonemia E72.20 Hyperbilirubinemia E80.6
[2022-12-08 18:17] LABS: Glucose Point of Care 140 mg/dL (70-110)
[2022-12-08] MEDS: oxyCODONE 5 mg IR Tab/Cap 10 MG PO (18:21)
[2022-12-08] MEDS: apixaban 5 mg Tablet PO (18:22)
[2022-12-08] MEDS: gabapentin 300 mg Capsule 600 MG PO (18:22)
[2022-12-08] MEDS: pantoprazole DR 40 mg Tablet PO (18:22)
--- NOTE | 2022-12-08 18:44 | PC.NURSE ---
Pt was placed in a hospital bed due to extended stay
[2022-12-08 19:35] LABS: Glucose Point of Care 109 mg/dL (70-110)
[2022-12-08] MEDS: lactulose oral liq 20 gm/30 mL UDC PO (21:23)
[2022-12-08] MEDS: ipratropium-albuterol 3 mL Neb INHALATION (21:30)
--- NOTE | 2022-12-08 21:58 | P.MISC_ITS ---
Miscellaneous Note Purpose of Documentation: Called by ERP that transfer to [facility] has uncertain timeline at this point. Es timated wait may be 3-4 days. Requesting admission to hospitalist now during overnight shift to make rooms available in ER for emergency patients. Patient remains on transfer list to [facility]. Admitted to Hospitalist service as above. Please consider consult note from Dr. Stafford earlier this evening as H&P.
[2022-12-09] VITALS (11 sets, daily range): BP systolic 140–165; BP diastolic 81–110; PULSE 93–109; RESP 15–20; TEMP 36.6–36.8; O2SAT 96–100
[2022-12-09] MEDS: oxyCODONE 5 mg IR Tab/Cap 10 MG PO ×2 (00:13→11:23)
[2022-12-09 00:55] LABS: Glucose Point of Care 204 mg/dL (70-110)
[2022-12-09 05:10] LABS: Basophils % 0.4 %; Eosinophils # 0.1 10^3/uL (0.0-0.8); Eosinophils % 1.2 %; Hematocrit 36.9 % (37.0-47.0); Hemoglobin 12.8 g/dL (11.5-15.3); Lymphocytes # 1.1 10^3/uL (0.8-4.8); Lymphocytes % 21.3 %; Mean Corpuscular HGB Conc 34.7 g/dL (30.0-36.0); Mean Corpuscular Hemoglobin 29.2 pg (28.0-34.0); Mean Corpuscular Volume 84.1 fl (81-99); Mean Platelet Volume 9.5 fL (7.4-10.4); Monocytes # 0.5 10^3/uL (0.2-0.9); Neutrophils # 3.48 10^3/uL (1.8-7.7); Neutrophils % 66.7 %; Nucleated Red Blood Cells % 0 %; Platelet Count 99 10^3/cmm (130-400); Red Blood Count 4.39 10^6/uL (4.1-5.3); Red Cell Distribution Width 19.3 % (12.1-15.1); White Blood Count 5.2 10^3/uL (4.0-10.0)
[2022-12-09 05:27] LABS: Alanine Aminotransferase 57 U/L (0-33); Albumin Level 3.7 g/dL (3.5-5.2); Alkaline Phosphatase 85 U/L (35-105); Aspartate Amino Transferase 49 U/L (0-32); Blood Urea Nitrogen 8 mg/dL (6-20); Calcium 9.2 mg/dL (8.5-10.5); Carbon Dioxide 22 mmol/L (22-29); Chloride 107 mmol/L (98-107); Globulin 2.8 g/dL (1.3-4.6); Glomerular Filtration Rate 170.4 mL/min (90-130); Glucose 186 mg/dL (65-115); Magnesium 1.9 mg/dL (1.7-2.3); Osmolality Calculated 297 mOsm/kg (285-295); Sodium 142 mmol/L (136-145); Total Bilirubin 1.6 mg/dL (0.15-1.2); Total Protein 6.5 g/dL (6.6-8.7)
[2022-12-09 05:28] LABS: Anion Gap 16.8 (5-19); Potassium 3.8 mmol/L (3.5-5.1)
[2022-12-09 05:42] LABS: Slide Review Slide Review Perform
[2022-12-09] MEDS: FUROsemide 40 mg Tablet 80 MG PO (05:50)
[2022-12-09] MEDS: levothyroxine 175 mcg Tablet PO (05:50)
[2022-12-09] MEDS: spironolactone 25 mg Tablet 100 MG PO (05:50)
[2022-12-09 06:48] LABS: Glucose Point of Care 189 mg/dL (70-110)
[2022-12-09 08:40] LABS: Glucose Point of Care 209 mg/dL (70-110)
[2022-12-09] MEDS: insulin lispro 100 unit/1 mL SUBCUT ×3 (09:30→17:35)
[2022-12-09] MEDS: gabapentin 300 mg Capsule 600 MG PO ×2 (09:33→17:34)
[2022-12-09] MEDS: pantoprazole DR 40 mg Tablet PO ×2 (09:34→17:35)
[2022-12-09] MEDS: apixaban 5 mg Tablet PO ×2 (09:34→17:34)
[2022-12-09] MEDS: lactulose oral liq 20 gm/30 mL UDC PO ×3 (09:35→21:08)
[2022-12-09] MEDS: cefTRIAXone 2,000 MG in sodium chloride 0.9% (plus) 50 ML 100 MG IV (09:41)
[2022-12-09] MEDS: sodium chloride 0.9% 100 mL Bag XX (10:22)
[2022-12-09 11:38] LABS: Glucose Point of Care 319 mg/dL (70-110)
--- NOTE | 2022-12-09 12:03 | P.HP_ITS ---
Providers/Chief Complaint Admitting Physician: Camila Salguero MD Primary Care Provider: Berta Whalen MD Chief Complaint: POST TREMORS History of Present Illness Shaista Boudreaux is a 47 year old female who has history of Ordonez, status post [facility] presented with altered mental status and asterixis recently in the ER when she was discharged home on lactulose and diuretics, presented back to the hospital with chief complaint of worsening of tremors, confusion.? Patient has been accepted at [facility], but they do not have any beds at this point, patient will stay in the ER, hospital service was consulted for management of comorbid conditions.? Patient does carry history of GERD, diabetes, DVT on Eliquis chronic anticoagulation, fibromyalgia. Review of Systems General: Reports: Other (Const: Denies: fever(s) Eyes: Denies: change in vision ENMT: Denies: ) Medications/Allergies Home Medications Medication Instructions Recorded Confirmed Last Taken Type albuterol sulfate 90 mcg/actuation 2 puff inhalation QID PRN 12/08/22 12/08/22 Unknown History aerosol inhaler Shortness Of Breath apixaban 5 mg tablet (Eliquis) 5 mg PO BID 12/08/22 12/08/22 12/07/22 History cetirizine 10 mg tablet 10 mg PO BEDTIME 12/08/22 12/08/22 12/07/22 History docusate sodium 100 mg capsule 300 mg PO BEDTIME 12/08/22 12/08/22 12/07/22 History (Colace) duloxetine 60 mg capsule,delayed 60 mg PO QAM 12/08/22 12/08/22 12/07/22 History release ferrous sulfate-vitamin C 39 mg-75 1 tab PO BEDTIME 12/08/22 12/08/22 12/07/22 History mg tablet furosemide 40 mg tablet 80 mg PO QAM 12/08/22 12/08/22 12/07/22 History see pharmacy comment gabapentin 300 mg capsule 600 mg PO BID 12/08/22 12/08/22 12/07/22 History glimepiride 4 mg tablet 4 mg PO BID 12/08/22 12/08/22 12/07/22 History ibuprofen 800 mg tablet 800 mg PO DAILY PRN Pain 12/08/22 12/08/22 Unknown History lactulose 10 gram/15 mL oral 30 ml PO TID 12/08/22 12/08/22 12/07/22 History solution (Constulose) levothyroxine 175 mcg tablet 175 mcg PO QAM 12/08/22 12/08/22 12/07/22 History linaclotide 145 mcg capsule 145 mcg PO QAM 12/08/22 12/08/22 12/07/22 History (Linzess) metformin 500 mg tablet,extended 1,000 mg PO BID 12/08/22 12/08/22 12/07/22 History release 24 hr montelukast 10 mg tablet 10 mg PO BEDTIME 12/08/22 12/08/22 12/07/22 History ondansetron 4 mg disintegrating 4 mg PO TID PRN Nausea And Vomiting 12/08/22 12/08/22 Unknown History tablet oxycodone 10 mg tablet 10 - 20 mg PO .EVERY 4-6 HOURS PRN 12/08/22 12/08/22 12/08/22 04:35 History Pain pantoprazole 40 mg tablet,delayed 40 mg PO BID 12/08/22 12/08/22 12/07/22 History release promethazine 25 mg tablet 12.5 - 25 mg PO Q4H PRN Nausea And 12/08/22 12/08/22 Unknown History Vomiting spironolactone 50 mg tablet 200 mg PO QAM 12/08/22 12/08/22 12/07/22 History see pharmacy comment tizanidine 4 mg tablet 4 mg PO Q4H 12/08/22 12/08/22 Unknown History Allergies Allergy/AdvReac Type Severity Reaction Status Date / Time cyclobenzaprine Allergy Unknown Verified 12/08/22 10:59 [From Flexeril] dicyclomine Allergy Unknown Verified 12/08/22 10:59 latex Allergy ALGY-Hives Verified 12/08/22 10:08 Latex, Natural Rubber Allergy ALGY-Hives Verified 12/08/22 10:08 medroxyprogesterone Allergy Unknown Verified 12/08/22 10:59 pseudoephedrine Allergy Unknown Verified 12/08/22 10:59 sulfamethoxazole Allergy Unknown Verified 12/08/22 10:59 [From Bactrim] trimethoprim [From Bactrim] Allergy Unknown Verified 12/08/22 10:59 PFSH Acute PFSH: Medical History Chronic anticoagulation Diabetes DVT (deep venous thrombosis) Surgical History S/P TIPS (transjugular intrahepatic portosystemic shunt) Family History Denies family history of CAD (coronary artery disease) Social History Smoking and tobacco status: never smoked Alcohol intake: never Substance/Drug Use: never Vitals/I&O/Wt Last Vital Signs Temp 98.2 F 12/09/22 07:06 Pulse 99 12/09/22 08:19 Resp 20 H 12/09/22 11:23 BP 140/110 12/09/22 07:06 Pulse Ox 96 12/09/22 08:19 O2 Del Method Room Air 12/09/22 08:19 12/08/22 12/09/22 12/09/22 22:59 06:59 14:59 Intake Total 290 / 290 Balance 290 / 290 Weight last 48 hrs Weight 120.111 kg Weight 120.656 kg Physical Exam Narrative: Patient is slightly drowsy Asterixis negative Mild confusion Nonfocal neuro exam S1, S2 Currently on room air Abdomen soft Verbally redirectable GCS 15 Data 12/09/22 05:00 12/09/22 05:00 Micro: Microbiology 12/08/22 13:45 Blood Culture - Preliminary Blood SPECIMEN COLLECTED 12/08/22 13:45 Blood Culture - Preliminary Blood SPECIMEN COLLECTED A&P Assessment and plan (1) Hyperbilirubinemia: (2) Hyperammonemia: (3) 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: (4) Acute hepatic encephalopathy: Plan Hepatic encephalopathy decompensated liver cirrhosis Status post TIPS procedur Confusion is a very common effect after TIPS procedure I will keep patient on ceftriaxone 2 g daily as prophylactic regimen for SBP Continue spironolactone to Lasix 2:1 ratio Cardiac low-sodium fluid stricter diet Full code Less than 2 g salt diet DVT prophylaxis covered with Eliquis Patient [place] continue Eliquis for now Patient history of fibromyalgia and GERD: Continue antidepressants and Protonix She has been accepted at [facility] awaiting bed placement Attestations Medical Necessity Statement*: Anticipating discharge within 48 hours Diagnoses Hyperbilirubinemia E80.6 Hyperammonemia E72.20 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
--- NOTE | 2022-12-09 12:06 | P.PN_ITS ---
Subjective Subjective: Patient was admitted to my service This morning patient is not confused at all I do not think patient will need transfer to [facility] at this point I would like to watch her on lactulose as patient is stating that she did not take lactulose for quite some time She is not able to afford rifaximin Patient was on bedside commode, 2 bowel movements so far Mentation has improved Vitals/I&O/Wt Last Vital Signs Temp 98.2 F 12/09/22 07:06 Pulse 99 12/09/22 08:19 Resp 20 H 12/09/22 11:23 BP 140/110 12/09/22 07:06 Pulse Ox 96 12/09/22 08:19 O2 Del Method Room Air 12/09/22 08:19 12/08/22 12/09/22 12/09/22 22:59 06:59 14:59 Intake Total 290 / 290 Balance 290 / 290 Weight last 48 hrs Weight 120.111 kg Weight 120.656 kg Physical Exam Narrative: Awake and alert GCS 15 nonfocal neuro exam Currently on room air Using bedside commode Abdomen soft S1, S2 Pleasant and cooperative during my evaluation Data 12/09/22 05:00 12/09/22 05:00 Micro: Microbiology 12/08/22 13:45 Blood Culture - Preliminary Blood SPECIMEN COLLECTED 12/08/22 13:45 Blood Culture - Preliminary Blood SPECIMEN COLLECTED A&P Assessment and plan (1) Acute hepatic encephalopathy: (2) Liver cirrhosis secondary to CEDILLO: (3) Hyperammonemia: (4) Hyperbilirubinemia: Plan Hepatic encephalopathy: Improved Noncompliance to lactulose and rifaximin Patient had 2 bowel movements, mentation has improved I am going to discharge her by tomorrow I do not think she will need transfer to tertiary center at this point Full code Continue lactulose Continue ceftriaxone as SBP prophylaxis Afebrile Attestations Medical Necessity Statement*: Discharge tomorrow Coding Level of Care Code Acute Code for [facility] Fwd Diagnoses Acute hepatic encephalopathy K76.82 Liver cirrhosis secondary to CEDILLO K75.81; K74.60 Hyperammonemia E72.20 Hyperbilirubinemia E80.6
[2022-12-09 16:52] LABS: Glucose Point of Care 204 mg/dL (70-110)
[2022-12-09 20:31] LABS: Glucose Point of Care 240 mg/dL (70-110)
[2022-12-09 23:55] LABS: Glucose Point of Care 198 mg/dL (70-110)
[2022-12-10] VITALS (10 sets, daily range): BP systolic 136–167; BP diastolic 75–89; PULSE 88–108; RESP 15–18; TEMP 36.6–37; O2SAT 95–99
[2022-12-10] MEDS: FUROsemide 40 mg Tablet 80 MG PO (05:11)
[2022-12-10] MEDS: levothyroxine 175 mcg Tablet PO (05:11)
[2022-12-10] MEDS: spironolactone 25 mg Tablet 100 MG PO (05:11)
[2022-12-10 05:24] LABS: Glucose Point of Care 242 mg/dL (70-110)
[2022-12-10 06:30] LABS: Glucose Point of Care 261 mg/dL (70-110)
[2022-12-10] MEDS: gabapentin 300 mg Capsule 600 MG PO ×2 (08:24→17:29)
[2022-12-10] MEDS: lactulose oral liq 20 gm/30 mL UDC PO ×6 (08:24→23:47)
[2022-12-10] MEDS: pantoprazole DR 40 mg Tablet PO ×2 (08:24→17:29)
[2022-12-10] MEDS: insulin lispro 100 unit/1 mL SUBCUT ×3 (08:24→17:29)
[2022-12-10] MEDS: apixaban 5 mg Tablet PO ×2 (08:24→17:29)
--- NOTE | 2022-12-10 08:25 | PM.PN ---
Subjective Subjective: Patient this morning is stating that she would like to go to sleep I did her option to go home versus still wait for the transfer She is able to eat breakfast Mentation is slow however she is able to answer question appropriately Vitals/I&O/Wt Last Vital Signs Temp 98.3 F 12/10/22 08:00 Pulse 101 H 12/10/22 08:00 Resp 18 12/10/22 08:00 BP 161/89 12/10/22 08:00 Pulse Ox 96 12/10/22 08:00 O2 Del Method Room Air 12/10/22 08:00 12/09/22 12/10/22 12/10/22 22:59 06:59 14:59 Intake Total 840 / 1250 Output Total 0 / 0 Balance 840 / 1250 0 / 1250 Weight last 48 hrs Weight 120.111 kg Weight 120.656 kg Physical Exam Narrative: Patient is fatigued and lethargic Complaining abdominal cramps Looks fluid overloaded Abdomen is soft nontender to palpation Currently afebrile On room air GCS 15 NIH 0 Nonfocal neuro exam Tachycardia Asterixis negative Data 12/09/22 05:00 12/09/22 05:00 Micro: Microbiology 12/08/22 13:45 Blood Culture - Preliminary Blood NEGATIVE TO DATE 12/08/22 13:45 Blood Culture - Preliminary Blood NEGATIVE TO DATE A&P Assessment and plan (1) Liver cirrhosis secondary to CEDILLO: (2) Hyperammonemia: (3) Hyperbilirubinemia: (4) Acute hepatic encephalopathy: Plan Hepatic encephalopathy Related to noncompliance with lactulose Patient in the hospital has been doing fairly well I do not see any signs of asterixis Mentation is slow, poor attention span However able to answer my question appropriate Nonfocal neuro exam I will continue her on Lasix and spironolactone regimen along lactulose Continue levothyroxine for hypothyroidism Continue ceftriaxone as SBP prophylaxis Patient is also taking Eliquis for her history of DVT I would not repeat labs for tomorrow Status post TIPS for her Cedillo related cirrhosis Attestations Medical Necessity Statement*: Awaiting transfer Diagnoses Liver cirrhosis secondary to CEDILLO K75.81; K74.60 Hyperammonemia E72.20 Hyperbilirubinemia E80.6 Acute hepatic encephalopathy K76.82
[2022-12-10] MEDS: cefTRIAXone 2,000 MG in sodium chloride 0.9% (plus) 50 ML 100 MG IV (08:48)
--- NOTE | 2022-12-10 10:41 | PC.CHAP ---
Pastoral Care Encounter/Spiritual Assessment Type of Contact [] Declined industrial real estate agent visit [] Patient/Family/Request visit [] Outpatient visit [] Follow-up visit [] Physician referral [] Code/Alert [x] Routine visit [] Staff referral [] Actively dying [] Patient sleeping [] Family support [] [] Out of room [] Palliative care [] [x] Receiving care in room [] Pre-surgical visit [] Trauma [] Long length of stay [] ICU visit [] Other: Relational/Emotional Strength [x] Patient feels connected with others/family/visitors/staff [] Distress [] Loneliness/isolation [] Abandonment Spirituality of Patient [x] Person of Nikki [] Attends Zoroastrian of their Nikki [x] Believes in Prayer [] Reads Bible or Mandaen materials [] There are Spiritual issues to be addressed Platform Attendant Interventions [x] Prayer [x] Active listening [x] Non-anxious presence [x] Spiritual/emotional support [] Crisis/trauma care [x] Spiritual counseling [] Bereavement support [] Provided bereavement packet [] Provided Bible/devotional materials [] Provided toy/stuffed animal, coloring book to patient or family member [] Provided Communion [] Anointing/[place] [] Salvation [x] Completed spiritual assessment [] Other: Impact on Illness or Injury [] Angry [] Fearful [] Anxious [] Often cries [] Exhaustion [] Unable to work [] Unable to attend buddhist [] Unable to walk/stand [] Unable to read [] Unable to drive [] Unable to eat/drink [] Unable to sleep [] Unable to be with family [] Patient intubated [] Other: Summary dealing with heart waiting doctor feels good has a good attitude well go home Time spent with patient 10 mins
[2022-12-10] MEDS: oxyCODONE 5 mg IR Tab/Cap 10 MG PO ×2 (10:53→17:35)
[2022-12-10 12:00] LABS: Glucose Point of Care 309 mg/dL (70-110)
[2022-12-10 16:25] LABS: Glucose Point of Care 194 mg/dL (70-110)
[2022-12-10 21:15] LABS: Glucose Point of Care 277 mg/dL (70-110)
[2022-12-11] VITALS (10 sets, daily range): BP systolic 147–167; BP diastolic 78–109; PULSE 65–106; RESP 15–20; TEMP 36.4–36.7; O2SAT 96–99
[2022-12-11 01:39] LABS: Glucose Point of Care 273 mg/dL (70-110)
[2022-12-11] MEDS: lactulose oral liq 20 gm/30 mL UDC PO ×7 (01:48→21:24)
[2022-12-11] MEDS: oxyCODONE 5 mg IR Tab/Cap 10 MG PO ×3 (02:09→19:44)
[2022-12-11 04:57] LABS: INR 1.28 (0.8-1.2)
[2022-12-11] MEDS: FUROsemide 40 mg Tablet PO (05:43)
[2022-12-11] MEDS: spironolactone 25 mg Tablet 100 MG PO (05:43)
[2022-12-11] MEDS: levothyroxine 175 mcg Tablet PO (05:44)
[2022-12-11 06:33] LABS: Glucose Point of Care 321 mg/dL (70-110)
[2022-12-11] MEDS: pantoprazole DR 40 mg Tablet PO ×2 (08:13→17:31)
[2022-12-11] MEDS: cefTRIAXone 2,000 MG in sodium chloride 0.9% (plus) 50 ML 100 MG IV (08:16)
[2022-12-11] MEDS: gabapentin 300 mg Capsule 600 MG PO ×2 (08:16→17:31)
[2022-12-11] MEDS: insulin lispro 100 unit/1 mL SUBCUT ×3 (09:57→17:32)
[2022-12-11 10:07] LABS: Estmated Average Glucose 117; Hemoglobin A1C 5.7 % (4.0-6.0)
--- NOTE | 2022-12-11 11:07 | P.PN_ITS ---
Subjective Subjective: This morning patient is stating that she is not able to recall if she saw me yesterday I did try to remind her that she was asking for silverware when I was in the room she was not able to recall any event from yesterday However she is endorsing feeling better today I also called her Sister Gaye who is the medical DPOA over the phone so she could witness today's visit Her concerns were addressed I did tell her that she was getting lactulose 3 times a day which we have increased to every 2 hours yesterday she has had more than 3 bowel movement so far, today we will change lactulose dose to every 4 hours We will switch her IV antibiotics to p.o. regimen We will request UA Continue diuretics They are okay with the plan to have her discharge home tomorrow and then follow- up outpatient in [place] within a week Patient to continue physical therapy she is able to use a walker Patient is using glimepiride and metformin and she has history of liver cirrhosis, I did raise my concern and told her sister that it should be addressed especially with underlying liver cirrhosis Vitals/I&O/Wt Last Vital Signs Temp 98.0 F 12/11/22 08:00 Pulse 105 H 12/11/22 09:49 Resp 16 12/11/22 09:49 BP 167/109 12/11/22 08:00 Pulse Ox 98 12/11/22 09:49 O2 Del Method Room Air 12/11/22 09:49 12/10/22 12/11/22 12/11/22 22:59 06:59 14:59 Intake Total 240 / 530 410 / 410 Balance 240 / 530 410 / 410 Physical Exam Narrative: Patient is doing well No asterixis Awake and alert Much more energetic In good spirits Eating breakfast Clinically does not look fluid overloaded Abdomen soft Nonfocal neuro exam S1, S2 Currently on room air She is wearing glasses Data 12/09/22 05:00 12/09/22 05:00 A&P Assessment and plan (1) Acute hepatic encephalopathy: (2) Liver cirrhosis secondary to CEDILLO: (3) Hyperammonemia: (4) Hyperbilirubinemia: (5) Hyperglycemia: Plan Hepatic encephalopathy Change lactulose dose to 20 mg every 4 hours instead of every 2 hours Multiple bowel movements noted Nursing staff notified I also notified charge nurse and nurse supervisor phosphoric acid Family's concerns addressed today All questions were answered SBP prophylaxis of ceftriaxone discontinued today I will switch her to Augmentin and requested UA No significant ascites to be drained Hyperglycemia related to type 2 diabetes At home she takes metformin and glimepiride which should be addressed Liver cirrhosis For now she is on insulin consistent carb diet Spoke with [facility] warehouse pricing and inventory clerk who has recommended outpatient follow-up in the clinic They agreed with lactulose dose for now and no other aggressive intervention at this point Full code Consistent carb diet Continue Eliquis which patient takes for history of DVT Attestations Medical Necessity Statement*: Discharge tomorrow Diagnoses Acute hepatic encephalopathy K76.82 Liver cirrhosis secondary to CEDILLO K75.81; K74.60 Hyperammonemia E72.20 Hyperbilirubinemia E80.6 Hyperglycemia R73.9
[2022-12-11 11:22] LABS: Glucose Point of Care 356 mg/dL (70-110)
[2022-12-11 12:11] LABS: Vitamin B12 672 pg/mL (232-1245)
[2022-12-11 14:04] LABS: Charge for UA Resulting for Rev
[2022-12-11 14:10] LABS: Add Urine Microscopic? NO; Bilirubin Urine Neg (Negative); Blood Urine Neg (Negative); Glucose Urine UA 4+ (Normal); Ketones Urine Negative (Negative); Leukocyte Esterase Urine Negative (Negative); Nitrate Urine Negative (Negative); Protein Urine Neg (Negative); Urine Appearance Clear (CLEAR); Urine Color Yellow (Yellow); Urobilinogen Urine 4 mg/dL (Negative); pH Urine 6 (5-7)
[2022-12-11 16:30] LABS: Glucose Point of Care 340 mg/dL (70-110)
[2022-12-11] MEDS: apixaban 5 mg Tablet PO (17:31)
--- NOTE | 2022-12-11 17:42 | US_ITS ---
WS: [id number] INDICATION: Ascites TECHNIQUE: Ultrasound abdomen limited FINDINGS: Four-quadrant abdominal ultrasound. No significant ascites. US/US abdomen lmt fluid [id number] IMPRESSION: No significant ascites
[2022-12-11 20:36] LABS: Glucose Point of Care 254 mg/dL (70-110)
[2022-12-11] MEDS: insulin glargine 100 units/1 mL 10 UNIT SUBCUT (21:24)
[2022-12-12] VITALS (13 sets, daily range): BP systolic 129–180; BP diastolic 70–89; PULSE 88–104; RESP 14–20; TEMP 36.4–37.1; O2SAT 95–100
[2022-12-12 00:07] LABS: Glucose Point of Care 258 mg/dL (70-110)
--- NOTE | 2022-12-12 00:07 | CTR_ITS ---
PROCEDURE INFORMATION: Exam: CT Head Without Contrast Exam date and time: 12/12/2022 12:28 AM Age: 47 years old Clinical indication: Altered mental status/memory loss and speech disturbance; Patient HX: New onset of lethargy with stuttering speech. ; Additional info: Neurological change TECHNIQUE: Imaging protocol: Computed tomography of the head without contrast. Radiation optimization: All CT scans at this facility use at least one of these dose optimization techniques: automated exposure control; mA and/or kV adjustment per patient size (includes targeted exams where dose is matched to clinical indication); or iterative reconstruction. REPORTING DATA: Count of CT and Cardiac NM exams in prior 12 months: This patient has received [address] and 0 known cardiac nuclear medicine studies in the 12 months prior to the current study. COMPARISON: CT head wo con* [id number] 08/29/2018 2:27 PM RADIATION DOSE METRICS: Total DLP (mGy-cm): 1068.18 FINDINGS: Brain: Normal. No hemorrhage. Unremarkable white matter. No mass effect. Cerebral ventricles: No ventriculomegaly. Paranasal sinuses: Visualized sinuses are unremarkable. No fluid levels. Mastoid air cells: Visualized mastoid air cells are well aerated. Bones/joints: Unremarkable. No acute fracture. Soft tissues: Unremarkable. CT/CT head wo con* [id number] IMPRESSION: No acute intracranial abnormality.
--- NOTE | 2022-12-12 00:17 | ECG_ITS ---
[facility] Test Date: 2022-12-11 Pat Name: Shaista Boudreaux Department: Room: 253 Gender: Female Mental Health Associate: : 1975 Requested By: Camila Salguero Order Number: [id number] Esau MD: Gerald Bowman M.D. Measurements Intervals [place] Rate: 92 P: 36 [place]: 147 QRS: 30 QRSD: 102 T: 52 QT: 316 QTc: 391 Interpretive Statements SINUS RHYTHM WITH SINUS ARRHYTHMIA POSSIBLE INFERIOR MYOCARDIAL INFARCTION , PROBABLY OLD [30 ms Q WAVE IN II/aVF] Compared to ECG 08/29/2018 13:39:45 Myocardial infarct finding now present Intraventricular conduction delay no longer present Electronically Signed On 12-12-2022 10:23:36 CDT by Gerald Bowman M.D. [id number]
--- NOTE | 2022-12-12 01:02 | PC.NURSE ---
Pt began stuttering and complaining of chest pain at 23:57 12/11/22 after speaking to sister on phone. This nurse checked vitals, which are as follows: 180/80 manual blood pressure, HR 98, SpO2 99% on room air, RR 22. BG was 258. Completed neuro/stroke assessment, patient has sensation and movement in all four limbs, symmetrical face, answered all orientation questions appropriately though hesitantly. EKG was completed, showing normal sinus rhythm with a HR 92. Dr. Salguero was called, orders for head CT without contrast and 1 time troponin received.
[2022-12-12 01:17] LABS: Troponin T (5th) Once 11 ng/L (0-10)
[2022-12-12] MEDS: oxyCODONE 5 mg IR Tab/Cap 10 MG PO ×4 (01:44→21:20)
[2022-12-12 04:13] LABS: Basophils # 0.1 10^3/uL (0.0-0.1); Basophils % 0.7 %; Eosinophils # 0.2 10^3/uL (0.0-0.8); Eosinophils % 1.5 %; Hematocrit 38.9 % (37.0-47.0); Hemoglobin 13.8 g/dL (11.5-15.3); Lymphocytes # 2.3 10^3/uL (0.8-4.8); Lymphocytes % 22.8 %; Mean Corpuscular HGB Conc 35.5 g/dL (30.0-36.0); Mean Corpuscular Hemoglobin 30.1 pg (28.0-34.0); Mean Corpuscular Volume 84.9 fl (81-99); Mean Platelet Volume 8.4 fL (7.4-10.4); Monocytes % 9.6 %; Neutrophils # 6.68 10^3/uL (1.8-7.7); Nucleated Red Blood Cells % 0 %; Platelet Count 93 10^3/cmm (130-400); Red Blood Count 4.58 10^6/uL (4.1-5.3); Red Cell Distribution Width 20.2 % (12.1-15.1); White Blood Count 10.3 10^3/uL (4.0-10.0)
[2022-12-12 04:39] LABS: Alanine Aminotransferase 56 U/L (0-33); Albumin Level 3.6 g/dL (3.5-5.2); Alkaline Phosphatase 104 U/L (35-105); Anion Gap 17.9 (5-19); Aspartate Amino Transferase 47 U/L (0-32); Blood Urea Nitrogen 9 mg/dL (6-20); Calcium 9.5 mg/dL (8.5-10.5); Carbon Dioxide 22 mmol/L (22-29); Chloride 101 mmol/L (98-107); Globulin 3.1 g/dL (1.3-4.6); Glomerular Filtration Rate 237.4 mL/min (90-130); Glucose 261 mg/dL (65-115); Osmolality Calculated 294 mOsm/kg (285-295); Sodium 138 mmol/L (136-145); Total Bilirubin 2.5 mg/dL (0.15-1.2); Total Protein 6.7 g/dL (6.6-8.7)
[2022-12-12 04:52] LABS: Potassium 2.9 mmol/L (3.5-5.1)
[2022-12-12] MEDS: FUROsemide 40 mg Tablet PO (05:28)
[2022-12-12] MEDS: potassium chloride ER 20 mEq Tablet 60 MEQ PO (05:28)
[2022-12-12] MEDS: spironolactone 25 mg Tablet 100 MG PO (05:28)
[2022-12-12] MEDS: lactulose oral liq 20 gm/30 mL UDC PO ×4 (05:28→21:20)
[2022-12-12] MEDS: levothyroxine 175 mcg Tablet PO (05:28)
[2022-12-12] MEDS: levoFLOXacin 750 mg Tablet PO (05:28)
--- NOTE | 2022-12-12 05:34 | PC.NURSE ---
Pt states she is collecting pill cups to take home because she does not have any medicine measuring spoons. She states that when she has to take an oral liquid medication at home, she just takes a big 'ol swig of it .
[2022-12-12 06:14] LABS: Glucose Point of Care 284 mg/dL (70-110)
[2022-12-12] MEDS: pantoprazole DR 40 mg Tablet PO ×2 (09:44→16:58)
[2022-12-12] MEDS: apixaban 5 mg Tablet PO ×2 (09:44→16:56)
[2022-12-12] MEDS: gabapentin 300 mg Capsule 600 MG PO ×2 (09:44→16:55)
[2022-12-12 11:18] LABS: Glucose Point of Care 276 mg/dL (70-110)
[2022-12-12] MEDS: insulin lispro 100 unit/1 mL SUBCUT ×2 (12:39→16:56)
[2022-12-12 16:25] LABS: Glucose Point of Care 282 mg/dL (70-110)
--- NOTE | 2022-12-12 21:12 | P.PN_ITS ---
Subjective Subjective: Patient noted to still be confused at times and unsafe for discharge. Patient did note that bowels are moving more. Denies fevers, chills, nausea or emesis. Vitals/I&O/Wt Last Vital Signs Temp 98.7 F 12/12/22 20:00 Pulse 103 H 12/12/22 20:00 Resp 18 12/12/22 20:00 BP 147/79 12/12/22 20:00 Pulse Ox 97 12/12/22 20:00 O2 Del Method Room Air 12/12/22 19:32 12/12/22 12/12/22 12/12/22 06:59 14:59 22:59 Intake Total 4080 / 4730 600 / 600 240 / 840 Balance 4080 / 4730 600 / 600 240 / 840 Physical Exam Narrative: General: Patient is awake. Frail appearing. Head: Normocephalic. Atraumatic. EOM intact. Neck: No JVD. Cardiovascular: RRR. No gallops. No murmurs. BLE edema. Lungs: Clear to auscultation, no use of accessory muscles, no crackles or wh eezes. Skin: No jaundice. No rashes. Abdomen: Normal bowel sounds, abdomen soft and nontender. Genito Urinary: Genital exam not performed since complaints not related. Rectal: Rectal exam not performed since no symptoms indicated blood loss. Extremities: No cyanosis or clubbing. Musculoskeletal: Normal muscle mass. Neurological: No myoclonus. Moves all 4 extremities. Data 12/12/22 03:16 12/12/22 03:16 A&P Assessment and plan (1) Acute hepatic encephalopathy: (2) Liver cirrhosis secondary to CEDILLO: (3) Hyperammonemia: (4) Hyperbilirubinemia: (5) Hyperglycemia: Plan Hepatic encephalopathy Decompensated liver cirrhosis -Titrating lactulose -Coordinating Xifaminin script -Still confused, not responding to treatment as inteded -Serial neuro exams -Continue levofloxacin for SBP ppx Hyperglycemia related to type 2 diabetes -Plan to d/c metformin and glimepiride -SSI while admitted -Avoid hypoglycemia Hx of DVT -Continue DOAC Code: Full Attestations Medical Necessity Statement*: Patient with persistent confusion 2/2 HE and not safe for discharge requiring ongoing hospitalized care. Coding Level of Care Code Acute Code for [facility] Fwd Diagnoses Acute hepatic encephalopathy K76.82 Liver cirrhosis secondary to CEDILLO K75.81; K74.60 Hyperammonemia E72.20 Hyperbilirubinemia E80.6 Hyperglycemia R73.9
[2022-12-12 21:13] LABS: Glucose Point of Care 272 mg/dL (70-110)
[2022-12-12] MEDS: insulin glargine 100 units/1 mL 10 UNIT SUBCUT (21:20)
[2022-12-13] VITALS: BP 146/77; PULSE 103; RESP 18; TEMP 36.4; O2SAT 97
[2022-12-13 00:14] LABS: Glucose Point of Care 319 mg/dL (70-110)
[2022-12-13 04:13] VITALS: RESP 18
[2022-12-13] MEDS: oxyCODONE 5 mg IR Tab/Cap 10 MG PO ×2 (04:13→08:39)
[2022-12-13] MEDS: lactulose oral liq 20 gm/30 mL UDC PO ×2 (04:13→08:39)
[2022-12-13 04:43] VITALS: BP 147/67; PULSE 60; RESP 16; TEMP 37; O2SAT 97
[2022-12-13 04:51] LABS: Basophils # 0.1 10^3/uL (0.0-0.1); Basophils % 0.7 %; Eosinophils # 0.2 10^3/uL (0.0-0.8); Eosinophils % 2.3 %; Hematocrit 39.9 % (37.0-47.0); Hemoglobin 14.1 g/dL (11.5-15.3); Mean Corpuscular HGB Conc 35.3 g/dL (30.0-36.0); Mean Corpuscular Hemoglobin 29.6 pg (28.0-34.0); Mean Corpuscular Volume 83.8 fl (81-99); Mean Platelet Volume 8.5 fL (7.4-10.4); Monocytes % 10.1 %; Neutrophils # 6.51 10^3/uL (1.8-7.7); Neutrophils % 66.4 %; Nucleated Red Blood Cells % 0 %; Platelet Count 85 10^3/cmm (130-400); Red Blood Count 4.76 10^6/uL (4.1-5.3); Red Cell Distribution Width 19.9 % (12.1-15.1); White Blood Count 9.8 10^3/uL (4.0-10.0)
[2022-12-13 05:03] LABS: Alanine Aminotransferase 57 U/L (0-33); Albumin Level 3.5 g/dL (3.5-5.2); Alkaline Phosphatase 98 U/L (35-105); Anion Gap 16.1 (5-19); Aspartate Amino Transferase 50 U/L (0-32); Blood Urea Nitrogen 8 mg/dL (6-20); Calcium 8.6 mg/dL (8.5-10.5); Carbon Dioxide 23 mmol/L (22-29); Chloride 101 mmol/L (98-107); Globulin 3.2 g/dL (1.3-4.6); Glomerular Filtration Rate 170.4 mL/min (90-130); Glucose 266 mg/dL (65-115); Magnesium 1.9 mg/dL (1.7-2.3); Osmolality Calculated 292 mOsm/kg (285-295); Phosphorus 2.3 mg/dL (2.5-4.5); Potassium 3.1 mmol/L (3.5-5.1); Sodium 137 mmol/L (136-145); Total Protein 6.7 g/dL (6.6-8.7)
[2022-12-13 05:04] LABS: Ammonia 111 umol/L (11-51)
[2022-12-13] MEDS: FUROsemide 40 mg Tablet PO (05:47)
[2022-12-13] MEDS: spironolactone 25 mg Tablet 100 MG PO (05:47)
[2022-12-13] MEDS: levothyroxine 175 mcg Tablet PO (05:47)
[2022-12-13] MEDS: levoFLOXacin 750 mg Tablet PO (05:48)
[2022-12-13 07:27] LABS: Glucose Point of Care 323 mg/dL (70-110)
[2022-12-13] MEDS: insulin lispro 100 unit/1 mL SUBCUT ×2 (07:30→12:01)
[2022-12-13 08:00] VITALS: BP 164/85; PULSE 105; PULSE 90; RESP 16; RESP 18; TEMP 36.8; O2SAT 98; O2SAT 99
[2022-12-13] MEDS: gabapentin 300 mg Capsule 600 MG PO (08:39)
[2022-12-13] MEDS: apixaban 5 mg Tablet PO (08:39)
[2022-12-13] MEDS: pantoprazole DR 40 mg Tablet PO (08:39)
[2022-12-13 11:21] LABS: Glucose Point of Care 344 mg/dL (70-110)
[2022-12-13 12:00] VITALS: BP 158/86; PULSE 109; RESP 18; TEMP 36.8; O2SAT 96
--- NOTE | 2022-12-13 13:46 | PM.DCS ---
Discharge Providers Date of Admission: 12/08/22 23:27 Date of Discharge: December 13, 2022 Attending Provider at Admission: Camila Salguero MD Attending Provider at Discharge: Sunil Kat MD Primary Care Provider: Berta Whalen MD Diagnoses at Discharge Discharge Diagnosis (1) Acute hepatic encephalopathy: Status: Inactive (2) Liver cirrhosis secondary to CEDILLO: Status: Inactive (3) Hyperammonemia: Status: Inactive (4) Hyperbilirubinemia: Status: Inactive (5) Hyperglycemia: Status: Inactive Reason for Visit Reason for Visit: POST TREMORS Hospital Course Hospital Course Shaista Boudreaux is a 47 year old female who has history of CEDILLO cirrhosis status post TIPS procedure recently at [facility] presented with altered mental status and asterixis, found to have acute hepatic encephalopathy secondary to decompensated liver cirrhosis in the setting of recent TIPS procedure. She was treated with lactulose and rifaximin with resolution of encephalopathy. Patient was educated on titration of lactulose to 3-4 loose BM per day. New prescription set to pharmacy of choice for rifaximin. Patient also noted to have hyperglycemia in the setting of type 2 diabetes mellitus. Due to underlying liver cirrhosis, metformin and glimepiride were discontinued. She was insted started on Januvia. Hospital course complicated by hypokalemia which was replaced. She is to follow up with her PCP for further care. Physical Exam Narrative: General: Patient is awake.? Pleasant. Alert. Oriented. Head:? Normocephalic. Atraumatic. Neck: No JVD. Cardiovascular: RRR. No gallops. No murmurs. Lungs: CTAB.? No wheezing.? No rales. Skin: No jaundice. No rashes. Abdomen: Normal bowel sounds, abdomen soft and nontender. Extremities: No cyanosis or clubbing. Musculoskeletal: Normal muscle mass. Neurological:? No myoclonus.? Moves all 4 extremities. Discharge Data Studies Completed and Pending Completed Studies During Hospitalization Category Date Time Status CT head wo con* [id number] Stat Cat Scan 12/12/22 00:07 Completed XR chest 1V portable [id number] Urgent Exams 12/08/22 10:06 Completed US abdomen lmt fluid [id number] Routine Ultrasound 12/11/22 17:42 Completed US liver [id number] Stat Ultrasound 12/08/22 11:41 Completed Pending at discharge Category Date Time Status Blood Culture Stat Lab 12/08/22 13:45 Results Glucose Peritoneal Fluid Routine Lab 12/10/22 17:42 Uncollected Peritoneal Fluid Analysis Routine Lab 12/10/22 17:42 Uncollected pH Peritoneal Fluid Routine Lab 12/10/22 17:42 Uncollected Radiology Impressions Chest X-Ray 12/08/22 10:06 IMPRESSION: Unremarkable portable chest. Liver Ultrasound 12/08/22 11:41 IMPRESSION: 1. Very limited visualization of the TIPS. Patency is not well evaluated. There does appear to be at least some flow present. 2. Normal flow in the portal vein. 3. Small amount of ascites adjacent to the liver. Ascites has decreased in amount since 09/18/2022. Abdomen Ultrasound 12/11/22 17:42 IMPRESSION: No significant ascites Head CT 12/12/22 00:07 IMPRESSION: No acute intracranial abnormality. Laboratory Results WBC 9.8 10^3/uL (4.0-10.0) 12/13/22 04:40 RBC 4.76 10^6/uL (4.1-5.3) 12/13/22 04:40 Hgb 14.1 g/dL (11.5-15.3) 12/13/22 04:40 Hct 39.9 % (37.0-47.0) 12/13/22 04:40 MCV 83.8 fl (81-99) 12/13/22 04:40 MCH 29.6 pg (28.0-34.0) 12/13/22 04:40 MCHC 35.3 g/dL (30.0-36.0) 12/13/22 04:40 RDW 19.9 % (12.1-15.1) H 12/13/22 04:40 Plt Count 85 10^3/cmm (130-400) L 12/13/22 04:40 MPV 8.5 fL (7.4-10.4) 12/13/22 04:40 Neut % (Auto) 66.4 % 12/13/22 04:40 Lymph % (Auto) 20.0 % 12/13/22 04:40 [place] % (Auto) 10.1 % 12/13/22 04:40 Eos % (Auto) 2.3 % 12/13/22 04:40 Baso % (Auto) 0.7 % 12/13/22 04:40 Neut # (Auto) 6.51 10^3/uL (1.8-7.7) 12/13/22 04:40 Lymph # (Auto) 2.0 10^3/uL (0.8-4.8) 12/13/22 04:40 [place] # (Auto) 1.0 10^3/uL (0.2-0.9) H 12/13/22 04:40 Eos # (Auto) 0.2 10^3/uL (0.0-0.8) 12/13/22 04:40 Baso # (Auto) 0.1 10^3/uL (0.0-0.1) 12/13/22 04:40 Nucleated RBC % (auto) 0 % 12/13/22 04:40 Nucleated RBCs # 0.0 /100WBC 12/13/22 04:40 PT 16.40 SECONDS (12.1-14.9) H 12/11/22 04:32 INR 1.28 (0.8-1.2) H 12/11/22 04:32 APTT 30.9 SECONDS (23.9-36.7) 12/08/22 11:15 Sodium 137 mmol/L (136-145) 12/13/22 04:40 Potassium 3.1 mmol/L (3.5-5.1) L 12/13/22 04:40 Chloride 101 mmol/L (98-107) 12/13/22 04:40 Carbon Dioxide 23 mmol/L (22-29) 12/13/22 04:40 Anion Gap 16.1 (5-19) 12/13/22 04:40 BUN 8 mg/dL (6-20) 12/13/22 04:40 Creatinine 0.4 mg/dL (0.5-0.9) L 12/13/22 04:40 GFR Calculation 170.4 mL/min (90-130) H 12/13/22 04:40 Glucose 266 mg/dL (65-115) H 12/13/22 04:40 POC Glucose 344 mg/dL (70-110) H 12/13/22 11:12 Estimat Average Glucose 117 12/11/22 04:32 Hemoglobin A1c 5.7 % (4.0-6.0) 12/11/22 04:32 Calculated Osmolality 292 mOsm/kg (285-295) 12/13/22 04:40 Calcium 8.6 mg/dL (8.5-10.5) 12/13/22 04:40 Phosphorus 2.3 mg/dL (2.5-4.5) L 12/13/22 04:40 Magnesium 1.9 mg/dL (1.7-2.3) 12/13/22 04:40 Total Bilirubin 3.0 mg/dL (0.15-1.2) H 12/13/22 04:40 AST 50 U/L (0-32) H 12/13/22 04:40 ALT 57 U/L (0-33) H 12/13/22 04:40 Alkaline Phosphatase 98 U/L (35-105) 12/13/22 04:40 Ammonia 111 umol/L (11-51) H 12/13/22 04:40 Troponin T Gen 5 ng/L 11 ng/L (0-10) H 12/12/22 00:48 Total Protein 6.7 g/dL (6.6-8.7) 12/13/22 04:40 Albumin 3.5 g/dL (3.5-5.2) 12/13/22 04:40 Globulin 3.2 g/dL (1.3-4.6) 12/13/22 04:40 Vitamin B12 672 pg/mL (232-1245) 12/09/22 05:00 Urine Color Yellow (Yellow) 12/11/22 13:58 Urine Appearance Clear (CLEAR) 12/11/22 13:58 Urine pH 6 (5-7) 12/11/22 13:58 Ur Specific [place] 1.020 (1.005-1.030) 12/11/22 13:58 Urine Protein Neg (Negative) 12/11/22 13:58 Urine Glucose (UA) 4+ (Normal) H 12/11/22 13:58 Urine Ketones Negative (Negative) 12/11/22 13:58 Urine Blood Neg (Negative) 12/11/22 13:58 Urine Nitrate Negative (Negative) 12/11/22 13:58 Urine Bilirubin Neg (Negative) 12/11/22 13:58 Urine Urobilinogen 4 mg/dL (Negative) H 12/11/22 13:58 Ur Leukocyte Esterase Negative (Negative) 12/11/22 13:58 Procedures Performed None Vitals Last Vital Signs Temp 98.3 F 12/13/22 12:00 Pulse 109 H 12/13/22 12:00 Resp 18 12/13/22 12:00 BP 158/86 12/13/22 12:00 Pulse Ox 96 12/13/22 12:00 O2 Del Method Room Air 12/13/22 12:00 Discharge Plan Discharge Patient Disposition: Home Condition: Stable Prescriptions: New Januvia 50 mg tablet 50 mg PO DAILY Qty: 90 5RF levofloxacin 750 mg tablet 750 mg PO DAILY 7 Days Qty: 7 0RF rifaximin 550 mg tablet 550 mg PO BID Qty: 60 1RF potassium chloride 20 mEq tablet extended release 20 meq PO DAILY Qty: 14 0RF Continued furosemide 40 mg tablet 80 mg PO QAM levothyroxine 175 mcg tablet 175 mcg PO QAM cetirizine 10 mg tablet 10 mg PO BEDTIME tizanidine 4 mg tablet 4 mg PO Q4H pantoprazole 40 mg tablet,delayed release (DR/EC) 40 mg PO BID promethazine 25 mg tablet 12.5 - 25 mg PO Q4H PRN (Reason: Nausea And Vomiting) Colace 100 mg Capsule 300 mg PO BEDTIME gabapentin 300 mg capsule 600 mg PO BID montelukast 10 mg tablet 10 mg PO BEDTIME albuterol sulfate 90 mcg/actuation Hfa Aerosol Inhaler 2 puff INHALATION QID PRN (Reason: Shortness Of Breath) ondansetron 4 mg tablet,disintegrating 4 mg PO TID PRN (Reason: Nausea And Vomiting) spironolactone 50 mg tablet 200 mg PO QAM ferrous sulfate-vitamin C 39-75 mg Tablet 1 tab PO BEDTIME duloxetine 60 mg capsule,delayed release(DR/EC) 60 mg PO QAM Constulose 10 gram/15 mL solution 30 ml PO TID Rx Instructions: FOR 14 DAYS GOAL OF 4-5 BOWEL MOVEMENTS DAILY oxycodone 10 mg tablet 10 - 20 mg PO .EVERY 4-6 HOURS MDD 6 tabs PRN (Reason: Pain) Linzess 145 mcg capsule 145 mcg PO QAM Eliquis 5 mg tablet 5 mg PO BID Discontinued ibuprofen 800 mg tablet 800 mg PO DAILY PRN (Reason: Pain) glimepiride 4 mg tablet 4 mg PO BID metformin 500 mg tablet extended release 24 hr 1,000 mg PO BID Discharge Orders: Discharge Order (Routine); Ordered 12/13/22 Ordered By: Sunil Kat Referrals: Berta Whalen MD [Primary Care Provider] - 4-7 days Discharge Diet: Advance as tolerated and Low Salt Discharge Activity: Resume usual activity Patient Instructions: Potassium Chloride (By mouth), Rifampin (By mouth), Levofloxacin (By mouth), Sitagliptin (By mouth) (Januvia), Cirrhosis of the Liver (DC), Hypokalemia (DC), Opioid Safety Plan of Treatment: 1. Increase activity as tolerated. 2. Keep follow up with carbon paper coating machine setter. 3. Low Na diet with 2 gm salt restriction. 4. Follow up with PCP. Discharge Attestations Time Spent in Discharge Care*: greater than 30 min Quality Metrics Clinical Quality Measures [ No reported AMI, CVA or VTE this stay] Coding Level of Care Code Acute Code for [facility] Fwd Diagnoses Acute hepatic encephalopathy K76.82 Liver cirrhosis secondary to CEDILLO K75.81; K74.60 Hyperammonemia E72.20 Hyperbilirubinemia E80.6 Hyperglycemia R73.9
== END 2022-12-13 14:50 | disposition home or self-care (01) ==
LOC: ER 21:26 → MEDSURG 23:27
PROVIDERS: Internal Medicine; Admitting Provider Student in an Organized Health Care Education/Training Program; Emergency Provider Physician Assistant; PCP Family Medicine; Visit Provider Internal Medicine
DX: K76.82 Hepatic encephalopathy (principal); K74.69 Other cirrhosis of liver; K75.81 Nonalcoholic steatohepatitis (NASH); E11.9 Type 2 diabetes mellitus without complications; Z86.718 Personal history of other venous thrombosis and embolism; Z95.828 Presence of other vascular implants and grafts; T47.3X6A Underdosing of saline and osmotic laxatives, initial encounter; T36.6X6A Underdosing of rifampicins, initial encounter; Z91.128 Patient's intentional underdosing of medication regimen for other reason; Z79.891 Long term (current) use of opiate analgesic; Z79.01 Long term (current) use of anticoagulants
CPT/HCPCS: 36415; 36416; 70450; 71045; 76705; 80053; 81003; 82140; 82607; 82962; 83036; 83735; 84100; 84484; 85025; 85610; 85730; 87040; 93005; 94640; 94664; 96365; 96366; 96372; 97110; 97116; 97161; 99285; G0378; J0696; J1815; Q0169

== ENCOUNTER 2023-03-17 12:03 | Outpatient (CLI) | payer MEDICARE, MEDICAID, SELFPAY ==
--- NOTE | 2023-03-17 12:11 | MM_ITS ---
WS: [id number] Bilateral screening 3D tomosynthesis digital mammogram, 03/17/2023 Clinical Data: SCREENING Comparison: 12/25/2015 Findings: The breast parenchymal pattern shows fat replacement. No spiculated masses or clustered calcification s are seen. There are no secondary signs of carcinoma. There are lymph nodes in both axilla. There ar e benign calcifications in both breasts. Impression: 1. Negative bilateral mammogram unchanged. 2. Recommend annual screening mammograms. MM/[place] [id number] BIRADS: 1-Negative FOLLOW UP: 1 Year Follow-up The CAD formula checker was used.
== END 2023-03-17 12:04 | disposition home or self-care (01) ==
LOC: RAD 12:04
PROVIDERS: PCP Family Medicine; Visit Provider Family Medicine
DX: Z12.31 Encounter for screening mammogram for malignant neoplasm of breast (principal)
CPT/HCPCS: 77063; 77067

== ENCOUNTER → 2023-07-08 10:14 | Outpatient (BNVA) | payer MEDICARE, MEDICAID, SELFPAY | PROVIDERS: PCP Family Medicine; Referring Provider Family Medicine; Visit Provider Internal Medicine | DX: E11.9 Type 2 diabetes mellitus without complications (principal); K75.81 Nonalcoholic steatohepatitis (NASH); K74.60 Unspecified cirrhosis of liver; Z87.19 Personal history of other diseases of the digestive system; E03.9 Hypothyroidism, unspecified; Z86.39 Personal history of other endocrine, nutritional and metabolic disease; Z79.890 Hormone replacement therapy; Z79.84 Long term (current) use of oral hypoglycemic drugs; Z79.4 Long term (current) use of insulin | CPT/HCPCS: 36415; 80061; 83036; 84439; 84443; 99204 ==

== ENCOUNTER 2023-09-28 11:14 | Outpatient (CLI) | payer MEDICARE, MEDICAID, SELFPAY ==
[2023-09-28 13:13] LABS: Chol HDL Ratio 1.95 mg/dL (0.0-4.40); Cholesterol 125 mg/dL (0-200); HDL Cholesterol 64 mg/dL (60-100); LDL Cholesterol Calculated 52 mg/dL (50-129); LDL HDL Ratio 0.81 RATIO (0.00-3.22); Thyroid Stimulating Hormone 0.47 uIU/mL (0.27-4.20); Triglycerides 43 mg/dL (0-150)
[2023-09-28 14:33] LABS: Free T4 Free Thyroxine 1.89 ng/dL (0.82-1.77)
[2023-09-28 14:35] LABS: Estmated Average Glucose 94; Hemoglobin A1C 4.9 % (4.0-6.0)
== END 2023-09-28 11:15 | disposition home or self-care (01) ==
LOC: LAB 11:19
PROVIDERS: PCP Family Medicine; Visit Provider Internal Medicine
DX: E11.65 Type 2 diabetes mellitus with hyperglycemia (principal); K76.82 Hepatic encephalopathy; E03.9 Hypothyroidism, unspecified
CPT/HCPCS: 36415; 80061; 83036; 84439; 84443

== ENCOUNTER 2023-10-12 08:40 | Outpatient (CLI) | payer MEDICARE, MEDICAID, SELFPAY ==
--- NOTE | 2023-10-12 08:44 | CT_ITS ---
WS: [id number] CT urogram (CT abdomen and pelvis). HISTORY: HEMATURIA TECHNIQUE: Multiphase imaging through the abdomen and pelvis is performed for CT urography protocol. For phase CTA obtained. Oral contrast has not been provided. Sagittal and coronal reformats are submi tted. All CT scans at [facility] use at least one of these dose optimization techniques: auto mated exposure control; mA and/or kV adjustment per patient size (includes targeted exams where dose is matched to clinical indication); or iterative reconstruction. CONTRAST: Omnipaque 350; 95 mL IV. DLP: 5108.85 mGy.cm COMPARISON: 02/04/2022 Lung bases are clear. Heart size is normal. RIGHT kidney: 12.3 cm in length. Very minimal perinephric stranding. No renal calcification or ureter al calcification. There are a few scattered cortical hypodensities within the cortex. The largest in the upper pole is 8 millimeters. No solid mass identified. These cortical hypodensities were present on prior studies. There is a single cortical hypodensity in the lower pole measuring 9.4 mm with elev ated Hounsfield units. This hypodensity is in a calyx in the lower pole. This has not definitely been present on prior studies but patient's body habitus is causing artifact through the abdominal struct ures. The RIGHT ureter is negative. LEFT kidney: 11.9 cm in length. Normal. Very slight perinephric stranding. No calcifications. No tyrone ical mass or obstruction. The LEFT ureter is not distended with contrast in its entirety. The proxima l ureter is normally distended. Beginning at the level of L5 there is no contrast opacification of th e ureter. The ureter itself appears small caliber but cannot be evaluated distally. Urinary bladder: Significant artifact through the urinary bladder from patient's body habitus. No mas s identified. On the early arterial phases there is nondistended bladder but no enhancing uroepitheli al lesions. Reidentified is hepatosplenomegaly and changes of cirrhosis. Prior TIPS procedure. Small amount of as cites. Gallbladder has been surgically removed. Numerous cysts systemic varices are noted within the upper abdomen. No adrenal mass. Stomach is not distended. No small bowel obstruction. Diffuse constip ation. Large ventral abdominal wall hernia contains omentum and fluid. No adenopathy. IMPRESSION: 1. Single 9.4 mm mass with elevated Hounsfield units in a calyx RIGHT kidney, lower pole. This has n ot been identified on prior studies. 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 Consider ev aluation by urology. Imaging follow-up can be obtained in 3 months with and without IV contrast. 2. Incomplete opacification of the mid to distal LEFT ureter. May be due to spasm. No mass is identi fied within the LEFT ureter but evaluation is otherwise limited. 3. No bladder mass identified. 4. Marked hepatosplenomegaly with portal hypertension. Numerous portosystemic varices in the upper a bdomen. 5. Prior TIPS procedure. 6. Small amount of ascites which is improved since 02/04/2022.
[2023-10-12] MEDS: iohexol 350 mg/mL 500 mL Btl (per mL) IV (09:53)
== END 2023-10-12 08:41 | disposition home or self-care (01) ==
LOC: RAD 08:41
PROVIDERS: PCP Family Medicine; Visit Provider Family Medicine
DX: R31.9 Hematuria, unspecified (principal); N28.89 Other specified disorders of kidney and ureter; R18.8 Other ascites
CPT/HCPCS: 74178; Q9967

== ENCOUNTER 2023-11-30 09:58 | Outpatient (CLI) | payer MEDICARE, MEDICAID, SELFPAY | END 2023-11-30 09:59 | disposition home or self-care (01) | PROVIDERS: PCP Family Medicine; Visit Provider Family Medicine | DX: M25.861 Other specified joint disorders, right knee (principal); M25.761 Osteophyte, right knee; V87.8XXA Person injured in other specified noncollision transport accidents involving motor vehicle (traffic), initial encounter; Z87.828 Personal history of other (healed) physical injury and trauma; E11.9 Type 2 diabetes mellitus without complications; E03.9 Hypothyroidism, unspecified; Z86.39 Personal history of other endocrine, nutritional and metabolic disease; L84 Corns and callosities; K75.81 Nonalcoholic steatohepatitis (NASH); K74.60 Unspecified cirrhosis of liver; Z87.19 Personal history of other diseases of the digestive system; Z79.4 Long term (current) use of insulin; Z79.890 Hormone replacement therapy; Y93.9 Activity, unspecified | CPT/HCPCS: 73562; 99214 ==

== ENCOUNTER → 2024-01-07 09:54 | Outpatient (BNVA) | payer MEDICARE, MEDICAID, SELFPAY | PROVIDERS: PCP Family Medicine; Visit Provider Podiatrist Foot & Ankle Surgery | DX: L84 Corns and callosities (principal); G62.9 Polyneuropathy, unspecified; E11.42 Type 2 diabetes mellitus with diabetic polyneuropathy; M21.621 Bunionette of right foot; M21.622 Bunionette of left foot; Z79.4 Long term (current) use of insulin | CPT/HCPCS: 11055; 99203 ==

== ENCOUNTER 2024-12-19 13:01 | Outpatient (CLI) | payer MEDICARE, MEDICAID, SELFPAY | END 2024-12-19 13:02 | disposition home or self-care (01) | LOC: SLEEP 13:06 | PROVIDERS: Referring Provider Family Medicine; Visit Provider Internal Medicine Pulmonary Disease | DX: G47.33 Obstructive sleep apnea (adult) (pediatric) (principal) | CPT/HCPCS: G0399 ==

== ENCOUNTER → 2025-01-09 15:34 | Outpatient (BNVA) | payer OTHER, MEDICAID, SELFPAY | PROVIDERS: PCP Family Medicine; Visit Provider Podiatrist Foot & Ankle Surgery | DX: E11.8 Type 2 diabetes mellitus with unspecified complications (principal); L60.3 Nail dystrophy; L84 Corns and callosities; G62.9 Polyneuropathy, unspecified; R60.9 Edema, unspecified; L03.116 Cellulitis of left lower limb; L03.115 Cellulitis of right lower limb; M21.621 Bunionette of right foot; M21.622 Bunionette of left foot; E11.42 Type 2 diabetes mellitus with diabetic polyneuropathy; Z79.84 Long term (current) use of oral hypoglycemic drugs | CPT/HCPCS: 11721; 29580; 99213 ==

== ENCOUNTER → 2025-01-17 08:50 | Outpatient (BNVA) | payer OTHER, MEDICAID, SELFPAY | PROVIDERS: PCP Family Medicine; Visit Provider Thoracic Surgery (Cardiothoracic Vascular Surgery) | DX: R60.9 Edema, unspecified (principal) | CPT/HCPCS: 99203 ==